=== PATIENT | female | born 1930 | race Caucasian/White ===

== ENCOUNTER 2018-06-11 14:12 | Inpatient (IN) | payer MEDICARE ==
[~2018-06-11] VITALS: Ht 170.2 cm; Wt 66.8 kg
[~2018-06-11 14:12] MED LIST: ASPIRIN325 PO; BIOTIN-D1 GM PO; BYSTOLIC10 MG PO; CALCIUM500 MG PO; CEPHALEXIN 250250 MG; COLACE 100 MG100 MG PO; COZAAR100 MG PO; CRANBERRY400 MG; DITROPAN; ENOXAPARIN40 MG/0.1 INJECTION; HYDROCHLOROTHIA25 M1 PO; HYDROCODON-ACE1 EAC7 PO; HYOSCYAMINE0.15 M1 PO; IBUPROFEN 600600 M1 PO; IBUPROFEN 800800 M1 PO; K-DUR10 ME1; KEFLEX250 M1 PO; LISINOPRIL20 MG PO; LOPRESSOR; METOPROLOL PO; NORVASC10 MG PO; OXYBUTYNIN 5 MG5 M1 PO; POTASSIUM CHLO10 ME1 PO; PREMARIN0.3 MG PO; SYNTHROID50 MCG PO; VITAMIN D3400 UNIT PO
[2018-06-11 14:20] VITALS: BP 186/64
[2018-06-11] MEDS ORDERED: ZITHROMAX250 MG PO (14:24)
[2018-06-11] MEDS ORDERED: PREDNISONE 10 M10 MG PO (14:24)
[2018-06-11] MEDS ORDERED: TRIAMCINOLONE A80 G2 TOP (14:27)
[2018-06-11 14:49] LABS: ABSOLUTE LYMPHOCYTES 1.8 thou/uL (0.8-5.3); ABSOLUTE MONOCYTES 0.6 thou/uL (0.0-1.2); ABSOLUTE NEUTROPHILS 8.4 thou/uL (1.6-8.1); BASOPHILS 0.4 %; HEMATOCRIT 40.3 % (37.0-47.0); HEMOGLOBIN 13.4 gm/dL (12.0-15.0); LYMPHOCYTES 16.9 %; MCH 30.1 pg (26.0-34.0); MCHC 33.4 g/dL (28.0-37.0); MCV 90.2 fL (80.0-100.0); MONOCYTES 5.2 %; MPV 9.8 fl. (7.2-11.1); NUCLEATED RBCS 0 /100WBC; PLATELET COUNT* 254 thou/uL (150-400); POLYS 77.5 %; RBC 4.46 mil/uL (4.20-5.00); RDW-CV 13.8 % (10.5-14.5); WBC 10.9 thou/uL (4.0-11.0)
[2018-06-11 15:07] LABS: ANION GAP 9 mmol/L (7-16); BUN 35 mg/dL (7-18); CALCIUM 9.1 mg/dL (8.5-10.1); CHLORIDE 103 mmol/L (98-107); CO2 28 mmol/L (21-32); CREATININE 1.5 mg/dL (0.6-1.3); GLUCOSE 106 mg/dL (70-99); POTASSIUM 4.6 mmol/L (3.5-5.1); SODIUM 140 mmol/L (136-145); TROPONIN-I LEVEL <0.06 ng/mL (<0.06)
[2018-06-11 15:09] LABS: ALBUMIN 3.5 g/dL (3.4-5.0); ALKALINE PHOSPHATASE 102 U/L (46-116); SGOT 19 U/L (15-37); SGPT 24 U/L (30-65); TOTAL BILIRUBIN 0.8 mg/dL (<0.1-1.0); TOTAL PROTEIN 7.5 g/dL (6.4-8.2)
[2018-06-11 16:47] LABS: URINE BILIRUBIN NEGATIVE (Negative); URINE BLOOD NEGATIVE (Negative); URINE CLARITY CLEAR; URINE COLOR YELLOW; URINE GLUCOSE-RANDOM NEGATIVE (Negative); URINE KETONES NEGATIVE (Negative); URINE LEUKOCYTES-REFLEX 1+ (Negative); URINE NITRITE-REFLEX NEGATIVE (Negative); URINE PROTEIN NEGATIVE (Negative); URINE UROBILINOGEN 0.2 E.U./dl (0.2-1.0)
[2018-06-11 16:57] VITALS: BP 186/64
[2018-06-11 17:03] LABS: BACTERIA-REFLEX 1-9 Few /HPF (None Seen); CASTS None Seen /LPF (None Seen); CRYSTALS None Seen /LPF (None Seen); MUCUS None Seen strn/LPF (None Seen); SQUAMOUS 0-3 Few /LPF (0-3); URINE RBC 0-2 Rare /HPF (0-2); URINE WBC-REFLEX 0-5 Rare /HPF (0-5)
[2018-06-11 17:17] VITALS: BP 176/81
--- NOTE | 2018-06-11 18:49 | NUR ---
REPORT RECIEVIED FOR DANETTE,RN IN ER OF EXPECTED ADMISSION AT 1635- DX: CHEST PAIN WITH HEMOPTYSIS- P[T ARRIVED TO ROOM 223 VIA CART AT 1647- PT SBA TO BED- SUMMER NANNY PLACED ORDERED, TRACING SR- PT A&O X4- CONTINENT OF BOWEL AND BLADDER- SBA WITH TRANSFERS FOR SAFETY- EXPIRATORY WHEEZING NOTED, RESP EVEN AND UN-LABORED- NON-PRODUCTIVE COUGH NOTED- VS 98.2 18 176/73 79 97%N ON RA- ABD SOFT/ROUND/NON-TENDER, BS X4 QUADS- LAST BM REPORTED 06/10/18- IV TO RIGHT AC NOTED TO INFILTRATED WITH NEW 20 GAUGE IV PLACED TO RIGHT FA THIS SHIFT- 1L BOLUS FINISHED ON FLOOR WITH MAINTANCE FLUIDS STARTED AT 100ML/HR- IV ABT COMPLETED IN FLOOR ORDERED WELL- LACTIC RESULTED AT 2.4 AT 1615 WITH RESULTS CALLED TO , ORDERS RECIEVIED TO REDRAW IN 6 HOURS WITH ORDERS NOTED INDICATED- PT DENIES ANY C/O PAIN/DISCOMFORT AT THIS TIME-SKIN C/D/I- CALL LIGHT AND PERSONAL BELONGINGS WITH IN REACH- HOURLY ROUNDS IN PLACE R/T SAFETY/NEEDS- ALL NEEDS MET AT THIS TIME-WCTM
[2018-06-11 19:30] VITALS: BP 150/55
[2018-06-11 23:51] VITALS: BP 152/57
[2018-06-12 04:00] VITALS: BP 115/58
--- NOTE | 2018-06-12 06:42 | NUR ---
VITALS WNL. SEE MAR. SEE CHARTING. FALL PRECAUTIONS IN PLACE. HOURLY ROUNDING FOR SAFETY.
[2018-06-12 07:55] VITALS: BP 180/65
--- NOTE | 2018-06-12 09:18 | NUR ---
ASSUMED CARE OF PT THIS AM AROUND 0715- PHONE BANKER IN PLACE ORDERED, TRACING SR- UPON ASSESSMENT PT NOTED TO BE RESTING IN BED, WATCHING TV- PT A&O X4- CONTINENT OF BOWEL AND BLADDER- SBA WITH TRANSFERS FOR SAFETY- EXPIRATORY WHEEZING NOTED, SOA NOTED ON EXERTION- VSS, O2 SAT 95% ON 2L VIA NC- ABD SOFT/ROUND/NON-TENDER, BS X4 QUADS- LAST BM REPORTED X2 DAYS AGO- GOOD PO INTAKE NOTED THIS AM WITH BREAKFAST- IV NOTED TO RIGHT FA INTACT, IVF INFUSSING PRESCIBED- TRACE EDEMA NOTED TO BLE- PULMONARY CONSULT INITIATED THIS AM, ECHO ORDERED- PT DENIES ANY C/O PAIN/DISCOMFORT AT THIS TIME- CALL LIGHT AND PERSONAL BELONINGS WITH IN REACH- HOURLY ROUNDS IN PLACE R/T SAFETY/NEEDS- ALL NEEDS MET AT THIS TIME-WCTM
[2018-06-12 12:18] VITALS: BP 152/56
[2018-06-12] MEDS ORDERED: VITAMIN B-1100 M1 PO (12:49)
--- NOTE | 2018-06-12 15:11 | EKG ---
[place] [address] ELECTROCARDIOGRAM REPORT Name: NEAL PEREZ Room: [address] ADM IN M.R.#: [id number] Admission: 06/11/18 Attend Phys: Guero Moyer MD Discharge: Date of : 31 Report #: [id number] THIS REPORT FOR: //name// [facility] ED Test Date: 2018-06-11 Test Time: 14:46:28 Pat Name: NEAL PEREZ Department: Room: [facility] Gender: F Manufacturing Teacher: Mike TAVERAS : 1930 Requested By: Merle Barnes Order Number: [id number] MD: Aaron Garcia Measurements Intervals [place] Rate: 56 P: 45 PA: 191 QRS: 1 QRSD: 95 T: 51 QT: 439 QTc: 424 Interpretive Statements Sinus rhythm Left ventricular hypertrophy Borderline T abnormalities, anterior leads Compared to ECG 03/22/2012 18:21:28 Left ventricular hypertrophy now present T-wave abnormality now present Electronically Signed On 06-12-2018 15:10:51 CDT by Aaron Garcia [email or web address] <ELECTRONICALLY SIGNED> By: Aaron Garcia MD, FAC 06/12/18 1510 1446 1446 Aaron Garcia MD, [facility] /EPI
--- NOTE | 2018-06-12 16:09 | NUR ---
PT CURRENTLY RESTING IN BED, WATCHING TV- MANAGER OF [employer]LOBAL CONTINUED THIS SHIFT, TRACING SR- IV TO RIGHT FA INTACT AND SL, IVF NOTED TO BE D/C'D THIS SHIFT- PT NOTED TO BE UP TO BED SIDE CHAIR THIS SHIFT WITH MEALS TOLERATING WELL- PULMONARY HERE TO ASSESS THIS SHIFT WITH NEW ORDERS NOTED FOR SOLU-MED Q 8 HOURS, FLORASTOR 250MG BID, DUONEB Q 4, ROCEPHIN IV DAILY WITH 1ST DOSE GIVEN PRESCRIBED, AND US OF BLE WITH RESULTS NOTED TO NEGATIVE THIS SHIFT- IBUPROFEN 800MG X1 THIS SHIFT FOR C/O HEADACHE, REPORTED TO BE EFFECTIVE PER PT- PT MAKES NEEDS KNOWN- ALL NEEDS MET AT THIS TIME-WCTM
[2018-06-12 19:20] VITALS: BP 169/63
[2018-06-13] VITALS: BP 161/54
[2018-06-13 04:00] VITALS: BP 176/65
--- NOTE | 2018-06-13 06:40 | NUR ---
VITALS WNL. SEE MAR. SEE CHARTING. FALL PRECAUTIONS IN PLACE. HOURLY ROUNDING FOR SAFETY.
[2018-06-13 08:00] VITALS: BP 159/66
[2018-06-13 11:53] VITALS: BP 162/62
--- NOTE | 2018-06-13 13:39 | 2DMMODE ---
[place] [address] 2 D/M-MODE ECHOCARDIOGRAM Name: NEAL PEREZ Room: [address] IN [facility]#: [id number] Admission: 06/11/18 Attend Phys: Guero Moyer, Discharge: Date of : 32 Date of Service: 06/13/18 1339 Report #: [id number] THIS REPORT FOR: //name// APPROVED REPORT Study performed: 06/13/2018 10:17:38 EXAM: Comprehensive 2D, Doppler, and color-flow Echocardiogram Patient Location: In-Patient Room #: [facility] Status: routine BSA: 1.75 HR: 86 bpm BP: 159/66 mmHg Rhythm: NSR Other Information Study Quality: Good Indications Chest Pain 2D Dimensions IVSd: 11.84 (7-11mm) LVOT Diam: 21.22 (18-24mm) LVDd: 46.86 mm PWd: 11.03 (7-11mm) Ascending Ao: 32.82 (22-36mm) LVDs: 24.29 (25-40mm) Aortic Root: 26.35 mm Volumes Left Atrial Volume (Systole) LA ESV Index: 42.10 mL/m2 Aortic Valve AoV Peak Angel.: 2.68 m/s AO Peak Gr.: 28.72 mmHg LVOT Max P.42 mmHg AO Mean Gr.: 17.11 mmHg LVOT Mean P.53 mmHg LVOT Max V: 1.36 m/s AO V2 VTI: 53.65 cm LVOT Mean V: 0.85 m/s DARIN (VTI): 1.94 cm2 LVOT V1 VTI: 29.42 cm Mitral Valve E/A Ratio: 0.72 MV Decel. Time: 266.08 ms MV E Max Angel.: 0.77 m/[place] [address] 2 D/M-MODE ECHOCARDIOGRAM Name: NEAL PEREZ Room: [address] IN [facility].#: [id number] Admission: 06/11/18 Attend Phys: Guero Moyer, Discharge: Date of : 31 Date of Service: 06/13/18 1339 Report #: [id number] MV PHT: 77.16 ms MVA (PHT): 2.85 cm2 TDI E/Lateral E': 8.56 E/Medial E': 9.63 Medial E' Angel.: 0.08 m/s Lateral E' Angel.: 0.09 m/s Pulmonary Valve PV Peak Angel.: 1.34 m/s PV Peak Gr.: 7.14 mmHg Left Ventricle The left ventricle is normal size. There is normal LV segmental wall motion. There is normal left ventricular wall thickness. Left ventricular systolic function is normal. The left ventricular ejection fraction is within the normal range. LVEF is 60-65%. Grade I - abnormal relaxation pattern. Right Ventricle The right ventricle is normal size. The right ventricular systolic function is normal. Atria Left atrium is mildly dilated. The right atrium size is normal. Aortic Valve Mild aortic valve sclerosis. No aortic regurgitation is present. Mild aortic stenosis. Mitral Valve The mitral valve is normal in structure. Mild mitral regurgitation. No evidence of mitral valve stenosis. Tricuspid Valve The tricuspid valve is normal in structure. Unable to assess PA pressure. Trace tricuspid regurgitation. Pulmonic Valve The pulmonary valve is normal in structure. Trace pulmonic regurgitation. Great Vessels The aortic root is normal in size. IVC is normal in size and collapses >50% [place] [address] 2 D/M-MODE ECHOCARDIOGRAM Name: CHRISNEAL M Room: [address] IN [facility]#: [id number] Admission: 06/11/18 Attend Phys: Guero Moyer, Discharge: Date of : 31 Date of Service: 06/13/18 1339 Report #: [id number] Pericardium There is no pericardial effusion. <Conclusion> The left ventricle is normal size. There is normal left ventricular wall thickness. Left ventricular systolic function is normal. The left ventricular ejection fraction is within the normal range. LVEF is 60-65%. Grade I - abnormal relaxation pattern. The right ventricle is normal size. Left atrium is mildly dilated. Mild aortic valve sclerosis. No aortic regurgitation is present. Mild aortic stenosis. The mitral valve is normal in structure. Mild mitral regurgitation. The tricuspid valve is normal in structure. IVC is normal in size and collapses >50% with inspiration. There is no pericardial effusion. There is normal LV segmental wall motion. <ELECTRONICALLY SIGNED> By: Ray Boyd MD, FACC 06/13/18 1339 1339 1339 Ray Boyd MD, FACC /INF
[2018-06-13] MEDS ORDERED: CEFDINIR300 MG PO (13:50)
[2018-06-13] MEDS ORDERED: PROTONIX40 M1 PO (13:51)
[2018-06-13 14:04] VITALS: BP 162/62
--- NOTE | 2018-06-13 14:13 | CON ---
[address] [address] CONSULTATION Name: NEAL PEREZ Room: [address] IN M.R.#: [id number] Admission: 06/11/18 Attend Phys: Guero Moyer MD Discharge: Date of : 31 Report #: [id number] THIS REPORT FOR: //name// CC: Guero Wellington DATE OF SERVICE: 06/12/2018 REQUESTING PHYSICIAN: Dr. Moyer. INDICATION FOR CONSULTATION: Cough. HISTORY OF PRESENT ILLNESS: This is an 87-year-old female. She does not have any history of longstanding cardiac or respiratory disease longstanding. This is with the exception that there is a reported history of remote acute pulmonary embolism. The patient is not able to recall when this occurred. The patient stated that she has been sick for the last 3-4 weeks. She says that her also has been sick and has had similar complaints. She reports that she has had a cough. She has been bringing up yellow as well as white sputum. She did receive an antibiotic as well as prednisone, which she may have taken for 2 or 3 days prior to this admission, unclear as to whether the patient also received another antibiotic previous to this. The patient also did bring up small amounts of blood shortly prior to admission. She says that she has been short of breath. She did have some vague chest discomfort with respiration and coughing as well, which has now subsided. She does not have upper respiratory complaints. There is no swelling of lower extremities. There is no calf pain. The patient, however, does have significant varicose veins. She is not complaining of heartburn. She answered to the negative for 12 questions for review of systems except as mentioned above. PAST MEDICAL HISTORY: Per records, she had an acute pulmonary embolism at some point, the patient is unable to recall; hypertension, partial hysterectomy, bladder suspension, gallbladder surgery, hypothyroidism, Ospina's palsy, broken pelvis/hip. CURRENT MEDICATIONS: List in [employer] reviewed. HOME MEDICATIONS: List also in [employer] reviewed. SOCIAL HISTORY: Lifetime nonsmoker. No known history of heavy alcohol use or illegal drug use. ALLERGIES: THERE IS MENTION OF AMOXICILLIN AN ALLERGY; HOWEVER, THE PATIENT SAYS THAT SHE MAY HAVE TAKEN PENICILLIN RECENTLY; THEREFORE, IT IS QUESTIONABLE IF SHE ACTUALLY IS ALLERGIC TO PENICILLIN. Regardless, [place] [address] CONSULTATION Name: NEAL PEREZ Room: [address]#: [id number] Admission: 06/11/18 Attend Phys: Guero Moyer MD Discharge: Date of : 31 Report #: [id number] cephalosporins without any problems. SULFONAMIDE ANTIBIOTICS, HYDROCODONE AND CARISOPRODOL ARE ALSO MENTIONED ALLERGIES. PHYSICAL EXAMINATION: GENERAL: She is alert, awake and oriented, does not appear to be in any distress. VITAL SIGNS: She is on room air. She is saturating 92%. Has a pulse of 64 and a blood pressure of 152/56. She is afebrile with a temperature of 36.9. HEENT: Head is normocephalic and atraumatic. Pupils are equal and reactive. There is no throat erythema. NECK: Does not show raised JVP. CHEST: Breath sounds bilaterally equal, decreased, expirations are prolonged. No added sounds. HEART: Regular. There is no murmur. ABDOMEN: Soft and nontender. EXTREMITIES: Lower extremities show no edema and no calf tenderness; however, there are extensive and large varicose veins noted bilaterally. SKIN: Dry and intact. NEUROLOGICAL: Moves all extremities bilaterally equally and spontaneously with no focal deficit identified. IMAGING STUDIES: The patient's CTA chest shows a radiopaque density at the left lung base, has previous scarring on the previous CT as well, perhaps this is slightly more prominent on the new CT. There is no pulmonary embolism identified. There is no increase in pulmonary vascular congestion. LABORATORY DATA: The patient's lab work is in [employer] and this is reviewed. ASSESSMENT AND PLAN: 1. Cough/acute respiratory insufficiency. The patient appears to have had a recent viral respiratory tract infection, which appears to have already subsided. Note that her also had similar symptoms; however, this viral respiratory tract infection appears to have led to bronchospasm. It appears likely to me that this bronchospasm is the etiology of the patient's symptoms. The patient had some hemoptysis. This appears to be related to excessive coughing. There may in addition be a component of silent gastroesophageal reflux as well. 2. Bronchospasm. I will go ahead and start her on Solu-Medrol. We will also go ahead and start her on nebulized bronchodilators. 3. Hemoptysis/pulmonary infiltrates/left lower lobe scarring. There is a radiopaque density at the left lung base. This is also seen on her previous CT performed 10 years ago that is somewhat more prominent. There may be a small superimposed infiltrate. Therefore, at this time, I would continue with Zithromax and I went ahead and ordered more ceftriaxone as well. She has received a dose of ceftriaxone in the Emergency Room already. Most of the findings of the left lower lobe, however, appear to be old. A followup CT in [place] [id number] CONSULTATION Name: NEAL PEREZ Room: [address] IN ..#: [id number] Admission: 06/11/18 Attend Phys: Guero Moyer MD Discharge: Date of : 31 Report #: [id number] 3-6 months can be considered. The patient's hemoptysis has now subsided. There is no evidence of pulmonary emboli on the CT chest. 4. Suspected silent gastroesophageal reflux disease. In the short run, I will go ahead and give her a proton pump inhibitor while she is here. 5. Varicose veins. We will also do venous Dopplers. Note that there is a questionable history of pulmonary embolism at some point in the past. 6. Fluids and electrolytes. She did appear to be dehydrated on initial presentation with a creatinine elevated to 1.5, this has returned to 1.2 now. She has been well hydrated. In order to avoid development of fluid overload, I will go ahead and discontinue IV fluids at this time. 7. Deep vein thrombosis prophylaxis. She is on Lovenox. Thanks for this consultation. <ELECTRONICALLY SIGNED> By: Chris Prince MD 06/13/18 1413 1237 0727eYyo Chen MD /nt
== END 2018-06-13 15:00 | disposition home or self-care (01) | DRG 177 ==
LOC: M.ERS 14:12 → M.TBA-ER 15:46 → M.2W 15:46
PROVIDERS: Physician Assistant
DX: J15.6 Pneumonia due to other Gram-negative bacteria (principal); J96.01 Acute respiratory failure with hypoxia; N17.9 Acute kidney failure, unspecified; I12.9 Hypertensive chronic kidney disease with stage 1 through stage 4 chronic kidney disease, or unspecified chronic kidney disease; N18.3 Chronic kidney disease, stage 3 (moderate); J98.01 Acute bronchospasm; I83.90 Asymptomatic varicose veins of unspecified lower extremity; E03.9 Hypothyroidism, unspecified; Z88.1 Allergy status to other antibiotic agents; Z88.2 Allergy status to sulfonamides; Z88.8 Allergy status to other drugs, medicaments and biological substances; Z79.82 Long term (current) use of aspirin; Z79.899 Other long term (current) drug therapy; Z90.710 Acquired absence of both cervix and uterus; Z90.49 Acquired absence of other specified parts of digestive tract; Z86.711 Personal history of pulmonary embolism

== ENCOUNTER 2018-06-29 10:33 | Inpatient (IN) | payer MEDICARE ==
[~2018-06-29] VITALS: Ht 167.6 cm; Wt 67.1 kg
--- NOTE | ~2018-06-29 | CON ---
[address] [address] CONSULTATION Name: NEAL PEREZ Room: [address] IN .R.#: [id number] Admission: 06/29/18 Attend Phys: Maite Mittal MD Discharge: Date of : 31 Report #: [id number] THIS REPORT FOR: //name// CC: Maite Wellington MD DICTATED BY: Yeny Cantu [facility] DATE OF SERVICE: 06/30/2018 Please note at the time of this dictation, the patient was seen and physically examined by myself. HISTORY OF PRESENT ILLNESS: This 88-year-old female who presented to the Emergency Room with complaint of some rectal bleeding. She states that it started yesterday around 10:30 in the morning associated with some abdominal pain located in her lower abdomen. She states that it would radiate into her flank area. She had about 5 bowel movements during that time and very crampy and worsening in intensity with her bowel movement. She also noted that they were brown and very diarrhea like and then later, she noticed the bright red blood. She does have a history of diverticulitis in the past and these symptoms are similar she states that she has had before. The patient had a colonoscopy greater than 15 years ago and she does not recall what it showed. She denies any upper GI symptoms, no nausea, vomiting, decreased appetite or weight loss. She does have a history of some constipation, which she may go every 2-3 days. She states that her bowels if she has to take anything she may try, but usually stools are very hard and dry when she does go. ALLERGIES: INCLUDE AMOXICILLIN, CARISOPRODOL, HYDROCODONE AND SULFA. MEDICATIONS: From home, calcium, aspirin, Norvasc, Biotene, Synthroid, Cozaar, metoprolol, oxybutynin, potassium, pantoprazole, and ibuprofen p.r.n., but rarely takes that. PAST MEDICAL HISTORY: Hypertension, hypothyroid, history of PE in the past, Ospina's palsy and diverticulitis. PAST SURGICAL HISTORY: Cholecystectomy, bladder suspension, partial hysterectomy. FAMILY HISTORY: Negative for any GI or female cancers. SOCIAL HISTORY: and denies any alcohol, tobacco or illegal drug use. REVIEW OF SYSTEMS: Twelve-point review [place] [address] CONSULTATION Name: NEAL PEREZ Room: [address]#: [id number] Admission: 06/29/18 Attend Phys: Maite Mittal MD Discharge: Date of : 31 Report #: [id number] except what is mentioned in the HPI. PHYSICAL EXAMINATION: VITAL SIGNS: Temperature 36.6, pulse 55, respirations 16, blood pressure 182/63. HEART: Regular rate and rhythm. LUNGS: Clear. ABDOMEN: Soft, positive bowel sounds in all 4 quadrants with some slight left-sided quadrant tenderness. LABORATORY DATA: Hemoglobin 11.3, white count is 7.4, platelets 137. GFR is 47. PT 9.7 [address] is 0.9. CT showed left-sided colitis with faint contrast material accumulation within the lumen and diffusely thick walled descending colon. There was no actively extravasating mesenteric artery that was able to be identified. IMPRESSION: 1. Rectal bleeding. 2. Abdominal pain. 3. History of diverticulitis. 4. Constipation. 5. Anemia. 6. Thrombocytopenia. 7. Chronic kidney disease. PLAN: 1. Colonoscopy tomorrow with Dr. Mcneil. 2. Continue her Cipro and Flagyl, will need to continue that upon discharge. 3. The patient will need to have a better bowel regimen prior to going home, so that she is going on a more daily basis. 4. Further recommendations to be made once the procedure has been performed. Thank you for allowing us to participate in this patient's care. Please do not hesitate to call with any questions in regard to this consult. ADDENDUM I have personally seen and examined the patient and reviewed labs and imaging. The patient with history of colonoscopy over 15 years ago, who presents with severe abdominal pain followed by frequent stooling and blood in the stool. Her hemoglobin has dropped from 13 to 11. The patient also had a CT of abdomen and pelvis, which showed some thickening of the left side of the colon. She has prophylactically started on antibiotic and IV fluids. She is feeling somewhat better. We have suspicion [place] [address] CONSULTATION Name: NEAL PEREZ Room: [address] IN [facility]#: [id number] Admission: 06/29/18 Attend Phys: Maite Mittal MD Discharge: Date of : 31 Report #: [id number] ischemia and we will perform a colonoscopy tomorrow. This was communicated with the patient and is agreeable with plan. By: 1242 [id number] Rodriguez MD /khushi
[~2018-06-29 10:33] MED LIST changes: +CEFDINIR300 MG PO; +PREDNISONE 10 M10 MG PO; +PROTONIX40 M1 PO; +TRIAMCINOLONE A80 G2 TOP; +VITAMIN B-1100 M1 PO; +ZITHROMAX250 MG PO
[2018-06-29 10:46] VITALS: BP 134/57
[2018-06-29 11:26] LABS: ABSOLUTE BASOPHILS 0.1 thou/uL (0.0-0.2); ABSOLUTE EOSINOPHILS 0.1 thou/uL (0.0-0.7); ABSOLUTE LYMPHOCYTES 1.9 thou/uL (0.8-5.3); ABSOLUTE MONOCYTES 0.7 thou/uL (0.0-1.2); ABSOLUTE NEUTROPHILS 7.1 thou/uL (1.6-8.1); BASOPHILS 0.5 %; EOSINOPHILS 1.1 %; HEMATOCRIT 38.4 % (37.0-47.0); LYMPHOCYTES 18.8 %; MCH 30.8 pg (26.0-34.0); MCHC 33.9 g/dL (28.0-37.0); MCV 90.9 fL (80.0-100.0); MONOCYTES 7.2 %; MPV 9.3 fl. (7.2-11.1); NUCLEATED RBCS 0 /100WBC; PLATELET COUNT* 142 thou/uL (150-400); POLYS 72.4 %; RBC 4.22 mil/uL (4.20-5.00); RDW-CV 14.4 % (10.5-14.5); WBC 9.9 thou/uL (4.0-11.0)
[2018-06-29 11:31] LABS: URINE BILIRUBIN NEGATIVE (Negative); URINE BLOOD NEGATIVE (Negative); URINE CLARITY CLEAR; URINE COLOR YELLOW; URINE GLUCOSE-RANDOM NEGATIVE (Negative); URINE KETONES NEGATIVE (Negative); URINE LEUKOCYTES-REFLEX TRACE (Negative); URINE NITRITE-REFLEX NEGATIVE (Negative); URINE PROTEIN NEGATIVE (Negative); URINE UROBILINOGEN 0.2 E.U./dl (0.2-1.0)
[2018-06-29 12:00] LABS: ALBUMIN 3.1 g/dL (3.4-5.0); ALKALINE PHOSPHATASE 90 U/L (46-116); ANION GAP 6 mmol/L (7-16); BUN 30 mg/dL (7-18); CHLORIDE 106 mmol/L (98-107); CO2 27 mmol/L (21-32); CREATININE 1.4 mg/dL (0.6-1.3); GLUCOSE 91 mg/dL (70-99); LIPASE 88 U/L (73-393); POTASSIUM 4.5 mmol/L (3.5-5.1); SGOT 23 U/L (15-37); SGPT 40 U/L (30-65); SODIUM 139 mmol/L (136-145); TOTAL BILIRUBIN 0.8 mg/dL (<0.1-1.0); TOTAL PROTEIN 6.3 g/dL (6.4-8.2); TROPONIN-I LEVEL <0.06 ng/mL (<0.06)
[2018-06-29 12:06] LABS: SQUAMOUS 0-3 Few /LPF (0-3)
[2018-06-29 12:08] LABS: BACTERIA-REFLEX 1-9 Few /HPF (None Seen); CASTS None Seen /LPF (None Seen); CRYSTALS None Seen /LPF (None Seen); MUCUS None Seen strn/LPF (None Seen); URINE RBC 0-2 Rare /HPF (0-2); URINE WBC-REFLEX 0-5 Rare /HPF (0-5)
[2018-06-29 12:10] LABS: TRANSITIONAL EPITHEL CELL 0-3 Few /LPF (None Seen)
[2018-06-29 13:27] LABS: APTT 24.7 Seconds (25.0-31.3); INR 0.9; PROTIME 9.7 Seconds (9.20-11.50)
--- NOTE | 2018-06-29 14:42 | EKG ---
[place] [address] ELECTROCARDIOGRAM REPORT Name: NEAL PEREZ Room: [place] [address] ADM IN .R.#: [id number] Admission: 06/29/18 Attend Phys: Maite Mittal MD Discharge: Date of : 31 Report #: [id number] THIS REPORT FOR: //name// [facility] ED Test Date: 2018-06-29 Test Time: 11:11:36 Pat Name: NEAL PEREZ Department: Room: [facility] Gender: F Network Security Consultant: : 1930 Requested By: Robe Ceballos Order Number: [id number] MD: Ray Boyd Measurements Intervals [place] Rate: 53 P: 45 ID: [id number] QRS: 4 QRSD: 89 T: 59 QT: 405 QTc: 381 Interpretive Statements Sinus rhythm Left ventricular hypertrophy Compared to ECG 06/11/2018 14:46:28 T-wave abnormality no longer present Electronically Signed On 06-29-2018 14:42:02 CDT by Ray Boyd [email or web address] <ELECTRONICALLY SIGNED> By: Ray Boyd MD, [facility] 06/29/18 1442 1111 1111 Ray Boyd MD, FACC /EPI
[2018-06-29 17:46] LABS: HEMOGLOBIN 11.5 gm/dL (12.0-15.0); MCH 30.7 pg (26.0-34.0); MCHC 33.7 g/dL (28.0-37.0); MCV 91.2 fL (80.0-100.0); MPV 10.1 fl. (7.2-11.1); RBC 3.73 mil/uL (4.20-5.00); RDW-CV 14.1 % (10.5-14.5); WBC 8.3 thou/uL (4.0-11.0)
[2018-06-29 18:22] VITALS: BP 162/88
[2018-06-29 19:04] VITALS: BP 187/66
[2018-06-29 20:00] VITALS: BP 164/55
[2018-06-29 20:15] VITALS: BP 149/50
[2018-06-29 23:15] VITALS: BP 149/50
[2018-06-30 04:09] VITALS: BP 147/54
[2018-06-30 05:00] LABS: HEMATOCRIT 33.8 % (37.0-47.0); HEMOGLOBIN 11.3 gm/dL (12.0-15.0); MCH 30.6 pg (26.0-34.0); MCHC 33.3 g/dL (28.0-37.0); MPV 9.8 fl. (7.2-11.1); RBC 3.67 mil/uL (4.20-5.00); RDW-CV 14.4 % (10.5-14.5); WBC 7.4 thou/uL (4.0-11.0)
[2018-06-30 05:10] LABS: CALCIUM 8.5 mg/dL (8.5-10.1); CREATININE 1.1 mg/dL (0.6-1.3); MAGNESIUM 1.5 mg/dL (1.8-2.4); POTASSIUM 4.4 mmol/L (3.5-5.1)
--- NOTE | 2018-06-30 06:12 | NUR ---
ASSUMED PT CARE @ 1930. PT DENIES PAIN OR BM THIS SHIFT. AMBULATES W STEADY GAIT.A+OX4. TRACING SR ON MONITOR. MELATONIN GIVEN @ HS. EFFECTIVE FOR A FEW HRS THEN PT REQUESTED PRN BENADRYL. EFFECTIVE. CALL LIGHT IN REACH. HOURLY ROUNDING FOR SAFETY.
[2018-06-30 08:30] VITALS: BP 182/63
--- NOTE | 2018-06-30 09:14 | NUR ---
Pt is A&O. Resides at home with her . Active and independent. No DME. Hx of [facility] post hip surgery. No hx of SNF. Goal is home at dc, no needs anticipated. Following.
[2018-06-30 14:08] VITALS: BP 136/56
[2018-06-30] MEDS ORDERED: PERCOCET PO (14:08)
[2018-06-30] MEDS ORDERED: PROTONIX40 M1 PO (14:08)
[2018-06-30 15:43] VITALS: BP 166/51
--- NOTE | 2018-06-30 16:24 | NUR ---
ASSUMED CARE OF PATIENT @ ABOUT 1500 BY WHEEL CHAIR. PATIENT ORIENTED TO ROOM. ALERT AND ORIENTED X 4. IVF INFUSING. PT UP AD ODALIS. DENIES PAIN AND NAUSEA AT THIS TIME. WILL CONTINUE TO MONITOR.
[2018-06-30 19:45] VITALS: BP 179/53
[2018-07-01 03:19] VITALS: BP 179/53
--- NOTE | 2018-07-01 05:08 | NUR ---
PT REMAINED A&O X 4. PO MEDS, IV ANTIBIOTIC GIVEN ORDERED. NO PAIN, NAUSEA OR VOMITIMG. BOWEL PREP DONE FOR COLONOSCOPY. RETURN WATERY TRANSPARENT. ELECTROLYTE REPLACEMENT FOR OVER NIGHT, REDRAWN PENDING. WILL CONTINUE TO MONITOR.
[2018-07-01 07:43] VITALS: BP 157/56
--- NOTE | 2018-07-01 07:49 | NUR ---
PT A&O X4. VITALS, SpO2 STABLE RA. MEDS GIVEN ORDERED. PAIN WELL MANAGED WITH TYLENOL. NO NAUSEA OR VOMITING. PT WAS TAUGHT BY DAYSHIFT NURSE HOW TO EMPTY THE DRAINAGE BAG FOR HOME CARE. PT DEMONSTRATED GOOD TECHNIQUE THIS MORNING INDEPENDENTLY. 95 ML OF GREENISH DRAINAGE EMPTIED. WILL CONTINUE TO MONITOR.
[2018-07-01] MEDS ORDERED: ASPIRIN325 PO (08:12)
[2018-07-01] MEDS ORDERED: ACETAMINOPHEN325 M1 PO (08:12)
[2018-07-01] MEDS ORDERED: FLAGYL500 M1 PO (08:12)
[2018-07-01] MEDS ORDERED: CIPRO500 MG PO (08:12)
[2018-07-01 08:36] LABS: HEMOGLOBIN 11.3 gm/dL (12.0-15.0); MCH 30.1 pg (26.0-34.0); MCHC 33.3 g/dL (28.0-37.0); MCV 90.5 fL (80.0-100.0); MPV 9.8 fl. (7.2-11.1); RBC 3.76 mil/uL (4.20-5.00); RDW-CV 14.1 % (10.5-14.5); WBC 5.4 thou/uL (4.0-11.0)
[2018-07-01 08:41] LABS: CALCIUM 7.7 mg/dL (8.5-10.1); POTASSIUM 3.7 mmol/L (3.5-5.1)
--- NOTE | 2018-07-01 09:10 | NUR ---
REC'D REPORT FROM NOC RN, ASSUMED CARE OF PATIENT APPROX 0730. A&OX4, ABLE TO COMMUNICATE NEEDS TO STAFF. ASSESSMENT COMPLETE AND VS OBTAINED. MED/SURG STATUS. O2 SATS 94% WITH COUGH AND DEEP BREATH. NPO FOR COLONOSCOPY. NO C/O PAIN OR NAUSEA. CALL LIGHT WITHIN REACH. HOURLY ROUNDING FOR SAFETY AND PT NEEDS.
--- NOTE | 2018-07-01 13:00 | NUR ---
PATIENT RETURNED TO UNIT APPROX 1235, REPORT REC'D FROM [employer] D[employer]LLING MACHINE OPERATOR. PATIENT IN NO DISTRESS, NO C/O PAIN, NAUSEA OR SOA. ASSESSMENT COMPLETED, VS WNL. DIET ORDER IN PLACE. CALL LIGHT WITHIN REACH.
[2018-07-01 16:00] VITALS: BP 107/40
[2018-07-01 19:30] VITALS: BP 107/40
--- NOTE | 2018-07-01 20:38 | NUR ---
PATIENT DISCHARGED AT 2009 BY WHEELCHAIR TO CAR WITH SPOUSE IN STABLE CONDITION. DISCHARGE INSTRUCTIONS, MONOGRAPHS AND ALL BELONGINGS WITH PATIENT. SPOUSE HAS ALREADY RECEIVED NEW ABX RX AND HAD THEM FILLED.
--- NOTE | 2018-07-04 14:06 | PATH ---
[facility] [address] [place] [address] PATHOLOGY RPT PROCEDURE Name: BHAKTI OCASIO Room: [address] IN M.R.#: [id number] Admission: 06/29/18 Date of : 31 Discharge: 07/01/18 Report #: [id number] Path Case #: [id number] LCA Accession Number: [id number] . 01 Material submitted: . PART A: colon - ASCENDING COLON POLYP. Modifiers: ascending PART B: colon - SIGMOID COLON BIOPSY. Modifiers: sigmoid . 01 Clinical history: . Rule out ischemic colitis . 02 Diagnosis: A. Ascending colon polyp: - Hyperplastic polyp. . B. 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 See comment. (THERESA:benitez 07/04/2018) QTP/07/04/2018 . 02 Comment: The sigmoid colon biopsies (B) show benign colonic mucosa with active inflammation evidenced by neutrophils in the lamina propria in association with mucosal necrosis and atrophy with preservation of the deeper aspects of the crypts as well as condensation of the lamina propria in some areas suggesting fibrosis, typical of ischemic colitis. There is no significant basal lymphoplasmacytosis or crypt distortion to elevate a concern for inflammatory bowel disease. (THERESA:pit 07/04/2018) . 02 Electronically signed: . César Ospina MD, Pathologist NPI- [id number] . 01 Gross description: . A. Received in formalin labeled "Bhakti Ocasio, ascending colon polyp," are 2 segments of gutierrez soft tissue measuring 0.8 x 0.3 x 0.3 cm in aggregate dimensions and ranging from 0.3 to 0.5 cm in maximum dimension. The specimen is submitted entirely in cassette A1. . B. Received in formalin labeled "Bhakti Ocasio, sigmoid colon BX," are 5 segments of gutierrez soft tissue measuring 1.0 x 0.6 x 0.2 cm in aggregate dimensions and ranging from 0.2 to 0.3 cm in maximum dimension. The specimen is submitted entirely in cassette B1. (TSD; 07/01/2018) TOB/TOB . [address] [place] [address] PATHOLOGY RPT PROCEDURE Name: BHAKTI OCASIO Room: [address] IN M.R.#: [id number] Admission: 06/29/18 Date of : 31 Discharge: 07/01/18 Report #: [id number] Path Case #: [id number] Pathologist provided ICD-10: K63.5, K52.9 . 02 CPT . 247956, 176254 Specimen Comment: A courtesy copy of this report has been sent to Specimen Comment: [phone], , . Specimen Comment: Report sent to ,DR ALONZO / DR XIE Specimen Comment: A duplicate report has been generated due to demographic updates. Performed at: 01 [facility] [id number] [address], [place] [id number] MD Kenji Stone MD Phone: [phone] Performed at: 02 [facility] [address], [place], [place] [address] MD César Ospina MD Phone: [phone]
== END 2018-07-01 20:10 | disposition home or self-care (01) | DRG 394 ==
LOC: M.ERS 10:33 → M.TBA-ER 14:15 → M.ORTHSURG 14:15 → M.2W 14:15 → M.ORTHSURG 06-30 15:09
PROVIDERS: Family Medicine; ADMIT Internal Medicine
PROC: 0DBN8ZX Excision of Sigmoid Colon, Via Natural or Artificial Opening Endoscopic, Diagnostic (ICD-10-PCS; principal; 2018-07-01)
PROC: 0DBK8ZZ Excision of Ascending Colon, Via Natural or Artificial Opening Endoscopic (ICD-10-PCS; principal; 2018-07-01)
DX: K55.9 Vascular disorder of intestine, unspecified (principal); E44.1 Mild protein-calorie malnutrition; K57.30 Diverticulosis of large intestine without perforation or abscess without bleeding; N18.3 Chronic kidney disease, stage 3 (moderate); E03.9 Hypothyroidism, unspecified; K59.00 Constipation, unspecified; D69.6 Thrombocytopenia, unspecified; D64.9 Anemia, unspecified; I12.9 Hypertensive chronic kidney disease with stage 1 through stage 4 chronic kidney disease, or unspecified chronic kidney disease; K64.4 Residual hemorrhoidal skin tags; Z90.711 Acquired absence of uterus with remaining cervical stump; Z90.49 Acquired absence of other specified parts of digestive tract; Z86.711 Personal history of pulmonary embolism; Z88.6 Allergy status to analgesic agent; Z88.1 Allergy status to other antibiotic agents; Z88.2 Allergy status to sulfonamides; Z88.8 Allergy status to other drugs, medicaments and biological substances; Z79.1 Long term (current) use of non-steroidal anti-inflammatories (NSAID); Z79.899 Other long term (current) drug therapy; Z68.23 Body mass index [BMI] 23.0-23.9, adult

== ENCOUNTER 2019-12-20 13:51 | Inpatient (IN) | payer MEDICARE ==
[~2019-12-20] VITALS: Ht 170.2 cm; Wt 68.0 kg
--- NOTE | ~2019-12-20 | OP ---
[address] [address] OPERATIVE REPORT Name: CHRISNEAL Jeter Room: [address] IN .R.#: [id number] Admission: 12/20/19 Attend Phys: Mele Traore Discharge: Date of : 31 Report #: [id number] THIS REPORT FOR: //name// cc: Annie Wellington MD, Lin W. MD ~ CC: Joseph Saldana DICTATED BY: Howard Muhammad DO DATE OF SERVICE: 12/21/2019 PREOPERATIVE DIAGNOSIS: Displaced left femoral neck fracture. POSTOPERATIVE DIAGNOSIS: Displaced left femoral neck fracture. PROCEDURE: Left hip hemiarthroplasty. SURGEON: Nazario Parker DO. ASSISTANTS: 1. Howard Muhammad DO. 2. Rufus Calvert DO. ANESTHESIA: General. FLUIDS: Crystalloid per Anesthesia. ESTIMATED BLOOD LOSS: 100 mL. DRAINS: None. SPECIMENS: None. COMPLICATIONS: None. CONDITION: Stable to PACU. DISPOSITION: Recovery in PACU and discharge back to the floor. ANTIBIOTICS: 2 grams Ancef IV preop. IMPLANTS: Microport hemiarthroplasty with 49/28 bipolar head with a 0 neck. Size 5 Gladiator stem with standard offset. [address] [address] OPERATIVE REPORT Name: NEAL PEREZ Room: [address] IN [facility]#: [id number] Admission: 12/20/19 Attend Phys: Mele Traore Discharge: Date of : 31 Report #: [id number] INDICATIONS FOR PROCEDURE: The patient is a very pleasant 89-year-old female. She had a ground level fall yesterday and fell directly onto her left hip. She had immediate hip pain and was taken to the Emergency Department. X-rays identified a displaced left femoral neck fracture. We discussed surgical treatment of this. The risks, benefits, alternatives and possible complications were discussed at length and she was agreeable to proceed. We did discuss that this would be similar to her right hip fracture treatment that she had years ago. DESCRIPTION OF PROCEDURE: The patient was met in the preoperative area. Consent was obtained both verbally and written. The correct site was marked. She was transferred to the operative suite. She was given the benefit of general anesthesia. She was then transferred to the OR table and placed in the left lateral decubitus position. She was secured using the pegboard. All bony prominences were well padded. The left lower extremity was then prepped and draped in normal sterile fashion. A timeout was performed to identify the correct patient, procedure and operative site and antibiotic administration. All in the room were in agreement. The procedure began with an incision along the lateral aspect of the femur and curving posteriorly on the superior aspect of the incision. Sharp and blunt dissection was carried down to the level of the tensor fascia. This was split in line with the incision. A Charnley retractor was placed. We then released the gluteus minimus and medius from their insertion site on the trochanter. We then performed a T capsulotomy to gain access to the hip joint. There was a fracture hematoma identified. We did also identify a displaced left femoral neck fracture. We then made our neck cut measuring 1 cm proximal to the lesser trochanter. The neck and fractured head were then removed. We placed a size 49 trial head into the acetabulum, which was found to have a good fit and suction. We then turned our attention to the femoral stem preparation. We utilized the box osteotome for our starting point, taking some of the lateral cortex. We then utilized the canal finder followed by the reamer and broach. We subsequently broached up to a size 5 stem. We then utilized a trial neck and head and performed a reduction maneuver. This was found to be stable. We took an intraoperative x-ray to confirm the appropriate size and position of our implants. We then dislocated the hip and removed all trial components. The incision and femoral canal was thoroughly irrigated with Pulsavac. We then placed our final stem and malleted this into position. We then placed our final bipolar head. We then performed a reduction maneuver. This was found to be stable throughout range of motion. We then reapproximated the capsule with #1 Vicryl in [id number] fashion. This was followed by repair of the gluteus tendons with a #5 Ti-Cron. This was oversewn with #1 Vicryl. We then placed topical TXA and injected a local pain anesthetic about the incision. We then reapproximated the tensor fascia with a #1 Vicryl and followed this with a running #1 Stratafix. Subcutaneous tissue was closed with 2-0 Vicryl in simple interrupted inverted fashion followed by 3-0 Stratafix running for skin. This was then covered with surgical glue and a sterile Mepilex dressing. She was extubated and transferred to the PACU in [address] [address] OPERATIVE REPORT Name: NEAL PEREZ Room: [address] IN .R.#: [id number] Admission: 12/20/19 Attend Phys: Mele Traore Discharge: Date of : 31 Report #: [id number] condition. All needle and sponge counts were correct x 2 at the end of the case. Dr. Parker was present and scrubbed throughout all critical aspects of the case. By: [id number] Parker DO /nt
[~2019-12-20 13:51] MED LIST changes: +ACETAMINOPHEN325 M1 PO; +CIPRO500 MG PO; +FLAGYL500 M1 PO; +PERCOCET PO
--- NOTE | 2019-12-20 13:52 | 2DMMODE ---
[place] [address] 2 D/M-MODE ECHOCARDIOGRAM Name: NEAL PEREZ Room: [facility]#: [id number] Admission: 12/20/19 Attend Phys: Annie Wellington MD Discharge: Date of : 32 Date of Service: 12/20/19 1352 Report #: [id number] THIS REPORT FOR: cc: Annie Wellington MD, Lin W. MD Blick, David R. MD [facility] ~ APPROVED REPORT Study performed: 12/20/2019 12:29:49 EXAM: Comprehensive 2D, Doppler, and color-flow Echocardiogram Patient Location: Out-Patient BSA: 1.77 HR: 55 bpm BP: 193/65 mmHg Other Information Study Quality: Adequate Indications Murmur 2D Dimensions IVSd: 11.00 (7-11mm) LVOT Diam: 20.55 (18-24mm) LVDd: 46.37 mm PWd: 10.36 (7-11mm) Ascending Ao: 28.92 (22-36mm) LVDs: 29.64 (25-40mm) Aortic Root: 23.63 mm Volumes Left Atrial Volume (Systole) LA ESV Index: 17.80 mL/m2 Aortic Valve AoV Peak Angel.: 1.85 m/s AO Peak Gr.: 13.76 mmHg LVOT Max P.04 mmHg AO Mean Gr.: 8.49 mmHg LVOT Mean P.01 mmHg LVOT Max V: 0.71 m/s AO V2 VTI: 55.57 cm LVOT Mean V: 0.46 m/s DARIN (VTI): 1.39 cm2 LVOT V1 VTI: 23.31 cm Mitral Valve E/A Ratio: 1.00 [place] [address] 2 D/M-MODE ECHOCARDIOGRAM Name: NEAL PEREZ Room: [facility]#: [id number] Admission: 12/20/19 Attend Phys: Annie Wellington MD Discharge: Date of : 31 Date of Service: 12/20/19 1352 Report #: [id number] MV Decel. Time: 163.68 ms MV E Max Angel.: 0.72 m/s MV PHT: 47.47 ms MVA (PHT): 4.63 cm2 TDI E/Lateral E': 9.00 E/Medial E': 8.00 Medial E' Angel.: 0.09 m/s Lateral E' Angel.: 0.08 m/s Pulmonary Valve PV Peak Angel.: 0.64 m/s PV Peak Gr.: 1.65 mmHg Left Ventricle The left ventricle is normal size. There is normal LV segmental wall motion. There is normal left ventricular wall thickness. Left ventricular systolic function is normal. The left ventricular ejection fraction is within the normal range. LVEF is 55-60%. The left ventricular diastolic function is normal. Right Ventricle The right ventricle is normal size. The right ventricular systolic function is normal. Atria The left atrium size is normal. The right atrium size is normal. Aortic Valve Aortic valve is calcified. No aortic regurgitation is present. Mild aortic stenosis. Mitral Valve Mild mitral annular calcification. Mild mitral regurgitation. No evidence of mitral valve stenosis. Tricuspid Valve The tricuspid valve is normal in structure. There is no tricuspid valve regurgitation noted. Pulmonic Valve The pulmonary valve is normal in structure. There is trace pulmonic valvular regurgitation. Great Vessels The aortic root is normal in size. IVC [place] [address] 2 D/M-MODE ECHOCARDIOGRAM Name: CHRIS,NEAL M Room: [facility]#: [id number] Admission: 12/20/19 Attend Phys: Annie Wellington MD Discharge: Date of : 31 Date of Service: 12/20/19 1352 Report #: [id number] collapses >50% with inspiration. Pericardium There is no pericardial effusion. <Conclusion> LVEF is 55-60%. Mild aortic stenosis. Mild mitral regurgitation. <ELECTRONICALLY SIGNED> By: Aaron Garcia MD, FACC 12/20/19 1352 135 135 Aaron Garcia MD, [facility] /INF
[2019-12-20 14:02] VITALS: BP 199/67
[2019-12-20] MEDS ORDERED: BENTYL 10 MG CA10 M1 PO (14:06)
[2019-12-20] MEDS ORDERED: CRANBERRY400 MG PO (14:07)
[2019-12-20 16:37] LABS: ABSOLUTE BASOPHILS 0.1 thou/uL (0.0-0.2); ABSOLUTE EOSINOPHILS 0.1 thou/uL (0.0-0.7); ABSOLUTE LYMPHOCYTES 1.9 thou/uL (0.8-5.3); ABSOLUTE MONOCYTES 0.4 thou/uL (0.0-1.2); ABSOLUTE NEUTROPHILS 4.5 thou/uL (1.6-8.1); BASOPHILS 0.9 %; EOSINOPHILS 1.7 %; HEMATOCRIT 41.4 % (37.0-47.0); HEMOGLOBIN 13.9 gm/dL (12.0-15.0); LYMPHOCYTES 27.4 %; MCH 30.3 pg (26.0-34.0); MCHC 33.6 g/dL (28.0-37.0); MCV 90.1 fL (80.0-100.0); MONOCYTES 5.9 %; MPV 9.1 fl. (7.2-11.1); NUCLEATED RBCS 0 /100WBC; PLATELET COUNT* 274 thou/uL (150-400); POLYS 64.1 %; RDW-CV 13.7 % (10.5-14.5); WBC 7.1 thou/uL (4.0-11.0)
[2019-12-20 16:55] LABS: ALBUMIN 4.2 g/dL (3.4-5.0); CALCIUM 9.7 mg/dL (8.5-10.1); POTASSIUM 4.2 mmol/L (3.5-5.1); TOTAL BILIRUBIN 1.1 mg/dL (<0.1-1.0); TOTAL PROTEIN 8.5 g/dL (6.4-8.2)
[2019-12-20 17:40] VITALS: BP 159/66
[2019-12-20 18:02] VITALS: BP 161/66
[2019-12-20 19:29] VITALS: BP 161/66
[2019-12-20 21:20] VITALS: BP 165/55
[2019-12-21 04:29] LABS: HEMATOCRIT 32.9 % (37.0-47.0); MCH 30.6 pg (26.0-34.0); MCV 89.9 fL (80.0-100.0); MPV 9.7 fl. (7.2-11.1); RBC 3.66 mil/uL (4.20-5.00); RDW-CV 13.9 % (10.5-14.5); WBC 13.2 thou/uL (4.0-11.0)
[2019-12-21 04:40] LABS: CALCIUM 8.3 mg/dL (8.5-10.1); CREATININE 1.1 mg/dL (0.6-1.3); POTASSIUM 4.4 mmol/L (3.5-5.1)
[2019-12-21 04:44] LABS: HEMOGLOBIN 11.2 gm/dL (12.0-15.0)
[2019-12-21 04:55] VITALS: BP 146/48
[2019-12-21 07:50] VITALS: BP 166/52
[2019-12-21 07:52] LABS: PROTIME 10.8 Seconds (9.20-11.50)
--- NOTE | 2019-12-21 07:59 | EKG ---
[place] [address] ELECTROCARDIOGRAM REPORT Name: NEAL PEREZ Room: [address] IN .R.#: [id number] Admission: 12/20/19 Attend Phys: Harish Saldana Discharge: Date of : 31 Date of Service: 12/20/19 1619 Report #: [id number] THIS REPORT FOR: //name// [facility] ED Test Date: 2019-12-20 Test Time: 16:19:54 Pat Name: NEAL PEREZ Department: Room: [facility] Gender: F Quality Measurement Specialist: : 1930 Requested By: Tejas Dawson Order Number: [id number] MD: Aaron Garcia Measurements Intervals [place] Rate: 71 P: 34 IN: 220 QRS: 11 QRSD: 98 T: 28 QT: 410 QTc: 446 Interpretive Statements Sinus rhythm Prolonged IN interval Probable left atrial enlargement Compared to ECG 06/29/2018 11:11:36 First degree AV block now present Left ventricular hypertrophy no longer present Electronically Signed On 12-21-2019 7:59:28 CDT by Aaron Garcia [email or web address] <ELECTRONICALLY SIGNED> By: Aaron Garcia MD, [facility] 12/21/19 0759 1619 1619 Aaron Garcia MD, [facility] /EPI
[2019-12-21 12:00] VITALS: BP 144/41
[2019-12-21 16:18] VITALS: BP 152/50
[2019-12-21 19:54] VITALS: BP 140/50
[2019-12-22 00:04] VITALS: BP 150/51
[2019-12-22] MEDS ORDERED: ELIQUIS2.5 MG PO (06:46)
[2019-12-22 09:15] VITALS: BP 118/40
[2019-12-22] MEDS ORDERED: ELIQUIS5 MG PO (09:33)
[2019-12-22] MEDS ORDERED: CYCLOBENZAPRINE10 MG PO (09:33)
[2019-12-22] MEDS ORDERED: LOPRESSOR50 PO (09:33)
[2019-12-22 11:30] VITALS: BP 139/39
[2019-12-22 16:00] VITALS: BP 125/44
[2019-12-22 16:15] VITALS: BP 132/48
[2019-12-22 20:20] VITALS: BP 157/45
[2019-12-22 22:10] LABS: HEMATOCRIT 31.1 % (37.0-47.0); HEMOGLOBIN 10.2 gm/dL (12.0-15.0); MCH 29.6 pg (26.0-34.0); MCHC 32.8 g/dL (28.0-37.0); MCV 90.2 fL (80.0-100.0); MPV 9.8 fl. (7.2-11.1); RBC 3.45 mil/uL (4.20-5.00); RDW-CV 13.8 % (10.5-14.5); WBC 14.3 thou/uL (4.0-11.0)
[2019-12-22 22:22] LABS: ALBUMIN 2.7 g/dL (3.4-5.0); CALCIUM 8.2 mg/dL (8.5-10.1); CREATININE 1.3 mg/dL (0.6-1.3); TOTAL BILIRUBIN 0.6 mg/dL (<0.1-1.0); TOTAL PROTEIN 6.1 g/dL (6.4-8.2)
[2019-12-23] VITALS: BP 163/54
[2019-12-23 06:55] LABS: CALCIUM 8.6 mg/dL (8.5-10.1); POTASSIUM 4.6 mmol/L (3.5-5.1)
[2019-12-23 09:00] VITALS: BP 137/52
[2019-12-23 09:44] VITALS: BP 137/52
== END 2019-12-23 11:10 | DRG 522 ==
LOC: M.TBA-ER 15:58 → M.ORTHSURG 15:58
PROVIDERS: Emergency Medicine Emergency Medical Services; Orthopaedic Surgery; ADMIT Internal Medicine; ATTEND Internal Medicine
PROC: 0SRS0JZ Replacement of Left Hip Joint, Femoral Surface with Synthetic Substitute, Open Approach (ICD-10-PCS; principal; 2019-12-21)
DX: S72.002A Fracture of unspecified part of neck of left femur, initial encounter for closed fracture (principal); I10 Essential (primary) hypertension; E03.9 Hypothyroidism, unspecified; W18.39XA Other fall on same level, initial encounter; Z20.828 Contact with and (suspected) exposure to other viral communicable diseases; Z90.49 Acquired absence of other specified parts of digestive tract; Z23 Encounter for immunization; Z90.711 Acquired absence of uterus with remaining cervical stump; Z86.711 Personal history of pulmonary embolism; Z79.82 Long term (current) use of aspirin; Z79.899 Other long term (current) drug therapy; Z88.1 Allergy status to other antibiotic agents; Z88.2 Allergy status to sulfonamides; Z88.8 Allergy status to other drugs, medicaments and biological substances; Z88.5 Allergy status to narcotic agent; Y93.89 Activity, other specified; Y92.89 Other specified places as the place of occurrence of the external cause; Y99.8 Other external cause status

== ENCOUNTER 2019-12-22 16:22 | Inpatient (IN) | payer MEDICARE ==
[~2019-12-22] VITALS: Ht 170.2 cm; Wt 70.5 kg
[~2019-12-22 16:22] MED LIST changes: +BENTYL 10 MG CA10 M1 PO; +CRANBERRY400 MG PO; +CYCLOBENZAPRINE10 MG PO; +ELIQUIS2.5 MG PO; +ELIQUIS5 MG PO; +LOPRESSOR50 PO
[2019-12-23 12:14] VITALS: BP 137/48
[2019-12-23 19:00] VITALS: BP 172/71
[2019-12-24 06:32] LABS: HEMATOCRIT 29.1 % (37.0-47.0); HEMOGLOBIN 9.7 gm/dL (12.0-15.0); MCH 29.7 pg (26.0-34.0); MCHC 33.4 g/dL (28.0-37.0); MPV 9.7 fl. (7.2-11.1); RBC 3.27 mil/uL (4.20-5.00); RDW-CV 13.7 % (10.5-14.5); WBC 12.6 thou/uL (4.0-11.0)
[2019-12-24 06:42] LABS: CALCIUM 8.5 mg/dL (8.5-10.1); CREATININE 0.9 mg/dL (0.6-1.3); POTASSIUM 3.9 mmol/L (3.5-5.1)
[2019-12-24 08:00] VITALS: BP 174/66
[2019-12-24 19:29] VITALS: BP 137/49
[2019-12-25 07:00] VITALS: BP 143/49
[2019-12-25 19:00] VITALS: BP 131/60
[2019-12-26 07:30] VITALS: BP 129/49
[2019-12-26 19:00] VITALS: BP 126/46
[2019-12-27 07:30] VITALS: BP 142/49
[2019-12-27 19:00] VITALS: BP 148/45
[2019-12-28 08:00] VITALS: BP 145/42
[2019-12-28 15:13] LABS: HEMOGLOBIN 10.6 gm/dL (12.0-15.0); MCH 29.8 pg (26.0-34.0); MCV 90.3 fL (80.0-100.0); MPV 9.8 fl. (7.2-11.1); NUCLEATED RBCS 0 /100WBC; PLATELET COUNT* 326 thou/uL (150-400); RBC 3.54 mil/uL (4.20-5.00); RDW-CV 13.9 % (10.5-14.5); WBC 10.5 thou/uL (4.0-11.0)
[2019-12-28 15:21] LABS: CREATININE 1.1 mg/dL (0.6-1.3); POTASSIUM 5.2 mmol/L (3.5-5.1)
[2019-12-28 15:49] LABS: ABSOLUTE EOSINOPHILS 0.2 thou/uL (0.0-0.7); ABSOLUTE LYMPHOCYTES 1.8 thou/uL (0.8-5.3); ABSOLUTE MONOCYTES 0.7 thou/uL (0.0-1.2); ABSOLUTE NEUTROPHILS 7.8 thou/uL (1.6-8.1)
[2019-12-28 15:50] LABS: LARGE PLATELETS RARE; PLATELET ESTIMATE ADEQUATE
[2019-12-28 20:00] VITALS: BP 143/47
[2019-12-29 05:07] LABS: HEMATOCRIT 29.1 % (37.0-47.0); HEMOGLOBIN 9.5 gm/dL (12.0-15.0); MCH 29.2 pg (26.0-34.0); MCHC 32.6 g/dL (28.0-37.0); MCV 89.5 fL (80.0-100.0); MPV 9.9 fl. (7.2-11.1); RBC 3.25 mil/uL (4.20-5.00); RDW-CV 13.8 % (10.5-14.5); WBC 10.7 thou/uL (4.0-11.0)
[2019-12-29 05:25] LABS: ALBUMIN 2.2 g/dL (3.4-5.0); CALCIUM 8.7 mg/dL (8.5-10.1); CREATININE 1.2 mg/dL (0.6-1.3); MAGNESIUM 1.7 mg/dL (1.8-2.4); POTASSIUM 5.1 mmol/L (3.5-5.1); TOTAL BILIRUBIN 0.4 mg/dL (<0.1-1.0); TOTAL PROTEIN 6.3 g/dL (6.4-8.2)
[2019-12-29 08:30] VITALS: BP 138/44
[2019-12-29 20:08] VITALS: BP 142/50
[2019-12-30 03:59] LABS: CREATININE 1.1 mg/dL (0.6-1.3); POTASSIUM 5.3 mmol/L (3.5-5.1)
[2019-12-30 08:42] VITALS: BP 137/53
[2019-12-30 19:30] VITALS: BP 135/40
[2019-12-31 04:55] LABS: HEMATOCRIT 28.4 % (37.0-47.0); HEMOGLOBIN 9.4 gm/dL (12.0-15.0); MCH 29.6 pg (26.0-34.0); MCHC 33.2 g/dL (28.0-37.0); MCV 89.1 fL (80.0-100.0); MPV 9.1 fl. (7.2-11.1); RBC 3.19 mil/uL (4.20-5.00); RDW-CV 13.7 % (10.5-14.5); WBC 10.3 thou/uL (4.0-11.0)
[2019-12-31 05:33] LABS: ALBUMIN 2.2 g/dL (3.4-5.0); CALCIUM 8.9 mg/dL (8.5-10.1); CREATININE 1.1 mg/dL (0.6-1.3); MAGNESIUM 1.9 mg/dL (1.8-2.4); POTASSIUM 5.2 mmol/L (3.5-5.1); TOTAL BILIRUBIN 0.3 mg/dL (<0.1-1.0); TOTAL PROTEIN 6.5 g/dL (6.4-8.2)
[2019-12-31 08:19] VITALS: BP 151/53
[2019-12-31 19:25] VITALS: BP 122/43
[2020-01-01 05:15] LABS: CREATININE 1.1 mg/dL (0.6-1.3); POTASSIUM 4.9 mmol/L (3.5-5.1)
[2020-01-01 05:20] LABS: CALCIUM 8.7 mg/dL (8.5-10.1)
[2020-01-01 07:30] VITALS: BP 140/46
[2020-01-01 19:55] VITALS: BP 127/42
[2020-01-02 07:30] VITALS: BP 156/53
[2020-01-02 19:45] VITALS: BP 138/84
[2020-01-03 08:00] VITALS: BP 122/47
[2020-01-03 20:09] VITALS: BP 155/71
[2020-01-04 08:00] VITALS: BP 166/55
[2020-01-04 19:54] VITALS: BP 124/68
[2020-01-05 08:05] VITALS: BP 101/53
[2020-01-05 20:04] VITALS: BP 146/43
[2020-01-06 09:03] VITALS: BP 146/96
[2020-01-06 19:00] VITALS: BP 124/54
[2020-01-07 08:04] VITALS: BP 152/60
[2020-01-07 19:32] VITALS: BP 125/68
[2020-01-08 05:18] LABS: HEMATOCRIT 29.3 % (37.0-47.0); HEMOGLOBIN 9.7 gm/dL (12.0-15.0); MCV 87.9 fL (80.0-100.0); MPV 8.9 fl. (7.2-11.1); RBC 3.34 mil/uL (4.20-5.00); RDW-CV 13.8 % (10.5-14.5); WBC 8.9 thou/uL (4.0-11.0)
[2020-01-08 05:34] LABS: CALCIUM 8.8 mg/dL (8.5-10.1); CREATININE 1.3 mg/dL (0.6-1.3); MAGNESIUM 1.9 mg/dL (1.8-2.4); POTASSIUM 4.7 mmol/L (3.5-5.1)
[2020-01-08 08:47] VITALS: BP 155/48
[2020-01-08 19:00] VITALS: BP 133/49
[2020-01-09 08:00] VITALS: BP 133/80
[2020-01-09 19:00] VITALS: BP 141/42
[2020-01-10 07:30] VITALS: BP 168/50
[2020-01-10 19:00] VITALS: BP 129/90
[2020-01-11 08:49] VITALS: BP 158/53
[2020-01-11 11:06] VITALS: BP 158/53
[2020-01-11] MEDS ORDERED: FLOMAX0.4 MG PO (11:15)
[2020-01-11] MEDS ORDERED: ROXICODONE5 M2 PO (11:19)
[2020-01-11] MEDS ORDERED: MIRALAX17 GM PO (11:20)
[2020-01-11] MEDS ORDERED: TRAMADOL 50 MG50 MG PO (11:21)
[2020-01-11 11:28] VITALS: BP 158/53
[2020-01-11 13:54] VITALS: BP 158/53
== END 2020-01-11 12:30 | disposition home health service (06) | DRG 536 ==
LOC: M.REH 16:22
PROVIDERS: Family Medicine; Internal Medicine; ADMIT Physical Medicine & Rehabilitation; ATTEND Physical Medicine & Rehabilitation
DX: S72.002A Fracture of unspecified part of neck of left femur, initial encounter for closed fracture (principal); I10 Essential (primary) hypertension; K59.00 Constipation, unspecified; R33.9 Retention of urine, unspecified; E03.9 Hypothyroidism, unspecified; D64.9 Anemia, unspecified; E83.42 Hypomagnesemia; E87.5 Hyperkalemia; W18.39XA Other fall on same level, initial encounter; Z88.2 Allergy status to sulfonamides; Z88.1 Allergy status to other antibiotic agents; Z88.6 Allergy status to analgesic agent; Z88.8 Allergy status to other drugs, medicaments and biological substances; Z90.711 Acquired absence of uterus with remaining cervical stump; Z90.49 Acquired absence of other specified parts of digestive tract; Y93.89 Activity, other specified; Y92.89 Other specified places as the place of occurrence of the external cause; Y99.8 Other external cause status; Z86.711 Personal history of pulmonary embolism; Z82.49 Family history of ischemic heart disease and other diseases of the circulatory system; Z79.82 Long term (current) use of aspirin; Z79.899 Other long term (current) drug therapy

== ENCOUNTER 2020-09-14 15:37 | Inpatient (IN) | payer MEDICARE ==
[~2020-09-14] VITALS: Ht 167.6 cm; Wt 68.3 kg
[~2020-09-14 15:37] MED LIST changes: +FLOMAX0.4 MG PO; +MIRALAX17 GM PO; +ROXICODONE5 M2 PO; +TRAMADOL 50 MG50 MG PO
[2020-09-14 15:53] VITALS: BP 166/54
[2020-09-14] MEDS ORDERED: OXYBUTYNIN 5 MG5 M2 PO (15:57)
[2020-09-14] MEDS ORDERED: TOPROL XL25 MG PO (15:57)
[2020-09-14] MEDS ORDERED: CEPHALEXIN250 MG PO (15:58)
[2020-09-14 17:21] LABS: ABSOLUTE BASOPHILS 0.1 thou/uL (0.0-0.2); ABSOLUTE EOSINOPHILS 0.2 thou/uL (0.0-0.7); ABSOLUTE MONOCYTES 0.8 thou/uL (0.0-1.2); ABSOLUTE NEUTROPHILS 3.2 thou/uL (1.6-8.1); BASOPHILS 0.8 %; EOSINOPHILS 3.1 %; HEMOGLOBIN 12.4 gm/dL (12.0-15.0); LYMPHOCYTES 41.2 %; MCH 29.5 pg (26.0-34.0); MCHC 33.4 g/dL (28.0-37.0); MCV 88.3 fL (80.0-100.0); MONOCYTES 10.7 %; MPV 9.3 fl. (7.2-11.1); NUCLEATED RBCS 0 /100WBC; PLATELET COUNT* 217 thou/uL (150-400); POLYS 44.2 %; RBC 4.19 mil/uL (4.20-5.00); RDW-CV 14.6 % (10.5-14.5); WBC 7.2 thou/uL (4.0-11.0)
[2020-09-14 17:28] LABS: CREATININE 1.4 mg/dL (0.6-1.3); POTASSIUM 4.2 mmol/L (3.5-5.1)
[2020-09-14 17:33] LABS: ALBUMIN 3.4 g/dL (3.4-5.0); TOTAL BILIRUBIN 0.5 mg/dL (<0.1-1.0); TOTAL PROTEIN 6.9 g/dL (6.4-8.2)
[2020-09-14 21:05] LABS: URINE BILIRUBIN NEGATIVE (Negative); URINE BLOOD NEGATIVE (Negative); URINE CLARITY CLEAR; URINE COLOR YELLOW; URINE GLUCOSE-RANDOM NEGATIVE (Negative); URINE KETONES NEGATIVE (Negative); URINE LEUKOCYTES-REFLEX TRACE (Negative); URINE NITRITE-REFLEX NEGATIVE (Negative); URINE PROTEIN NEGATIVE (Negative); URINE SPECIFIC GRAVITY 1.015 (1.005-1.030); URINE UROBILINOGEN 0.2 E.U./dl (0.2-1.0)
[2020-09-14 21:06] VITALS: BP 178/78
[2020-09-14 21:23] LABS: CASTS None Seen /LPF (None Seen); SQUAMOUS 0-3 Few /LPF (0-3)
[2020-09-14 21:24] LABS: BACTERIA-REFLEX None Seen /HPF (None Seen); CRYSTALS None Seen /LPF (None Seen); URINE RBC 0-2 Rare /HPF (0-2); URINE WBC-REFLEX 0-5 Rare /HPF (0-5)
[2020-09-14 22:00] VITALS: BP 237/79
[2020-09-15] VITALS (8 sets, daily range): BP systolic 138–201; BP diastolic 47–85
[2020-09-15 10:24] LABS: CHOLESTEROL 201 mg/dL (<200); HDL CHOLESTEROL 62 mg/dL (>40); LDL CHOLESTEROL 124 mg/dL (<100); SERUM ASSESSMENT Clear; TC:HDL 3.2 Ratio (Not establshd); TRIGLYCERIDE 77 mg/dL (<150); VLDL 15 mg/dL (<40)
[2020-09-16] VITALS (8 sets, daily range): BP systolic 112–214; BP diastolic 59–72
[2020-09-16] MEDS ORDERED: VITAMIN B-125000 MCG SUBLING (09:11)
[2020-09-16] MEDS ORDERED: LIPITOR 20 MG T20 M1 PO (09:13)
--- NOTE | 2020-09-16 11:40 | EKG ---
[place] [address] ELECTROCARDIOGRAM REPORT Name: NEAL PEREZ Room: [address] ADM IN M.R.#: [id number] Admission: 09/14/20 Attend Phys: Harish Saldana Discharge: Date of : 31 Date of Service: 09/14/20 1738 Report #: [id number] THIS REPORT FOR: //name// [facility] ED Test Date: 2020-09-14 Test Time: 17:38:17 Pat Name: NEAL PEREZ Department: Room: [facility] Gender: F Desk Top Publisher: BRANDON : 1930 Requested By: Alesia Clark Order Number: [id number] MD: Aaron Garcia Measurements Intervals [place] Rate: 64 P: 30 MA: 212 QRS: -2 QRSD: 86 T: 55 QT: 422 QTc: 436 Interpretive Statements Sinus rhythm Borderline prolonged MA interval LVH with secondary repolarization abnormality Compared to ECG 12/20/2019 16:19:54 Left ventricular hypertrophy now present Electronically Signed On 09-16-2020 11:39:50 CDT by Aaron Garcia [email or web address] <ELECTRONICALLY SIGNED> By: Aaron Garcia MD, [facility] 09/16/20 1139 1738 1738 Aaron Garcia MD, [facility] /EPI
[2020-09-17 22:06] LABS: ANA INTERPRETATION Positive (())
== END 2020-09-16 19:10 | disposition home or self-care (01) | DRG 69 ==
LOC: M.ERS 15:37 → M.TBA-ER 19:04 → M.2W 21:31
PROVIDERS: Physician Assistant; ADMIT Internal Medicine; ATTEND Internal Medicine
DX: G45.9 Transient cerebral ischemic attack, unspecified (principal); R44.3 Hallucinations, unspecified; R47.1 Dysarthria and anarthria; R35.0 Frequency of micturition; I10 Essential (primary) hypertension; F03.90 Unspecified dementia, unspecified severity, without behavioral disturbance, psychotic disturbance, mood disturbance, and anxiety; E03.9 Hypothyroidism, unspecified; Z20.822 Contact with and (suspected) exposure to COVID-19; Z90.711 Acquired absence of uterus with remaining cervical stump; Z86.711 Personal history of pulmonary embolism; Z90.49 Acquired absence of other specified parts of digestive tract; Z79.82 Long term (current) use of aspirin; Z79.899 Other long term (current) drug therapy; Z88.1 Allergy status to other antibiotic agents; Z88.2 Allergy status to sulfonamides; Z88.5 Allergy status to narcotic agent; Z88.8 Allergy status to other drugs, medicaments and biological substances

== ENCOUNTER 2020-09-28 22:00 | Inpatient (IN) | payer MEDICARE ==
[~2020-09-28] VITALS: Ht 165.1 cm; Wt 70.3 kg
[~2020-09-28 22:00] MED LIST changes: +CEPHALEXIN250 MG PO; +LIPITOR 20 MG T20 M1 PO; +OXYBUTYNIN 5 MG5 M2 PO; +TOPROL XL25 MG PO; +VITAMIN B-125000 MCG SUBLING
[2020-09-28 22:01] VITALS: BP 227/97
[2020-09-28 22:38] LABS: ABSOLUTE EOSINOPHILS 0.3 thou/uL (0.0-0.7); ABSOLUTE LYMPHOCYTES 2.8 thou/uL (0.8-5.3); ABSOLUTE MONOCYTES 0.7 thou/uL (0.0-1.2); ABSOLUTE NEUTROPHILS 3.4 thou/uL (1.6-8.1); BASOPHILS 0.5 %; EOSINOPHILS 4.8 %; HEMATOCRIT 36.2 % (37.0-47.0); HEMOGLOBIN 12.3 gm/dL (12.0-15.0); LYMPHOCYTES 38.1 %; MCH 30.4 pg (26.0-34.0); MCHC 34.1 g/dL (28.0-37.0); MCV 89.3 fL (80.0-100.0); MONOCYTES 9.5 %; MPV 9.3 fl. (7.2-11.1); NUCLEATED RBCS 0 /100WBC; PLATELET COUNT* 197 thou/uL (150-400); POLYS 47.1 %; RBC 4.05 mil/uL (4.20-5.00); RDW-CV 14.2 % (10.5-14.5); WBC 7.3 thou/uL (4.0-11.0)
[2020-09-28 22:49] LABS: CALCIUM 8.5 mg/dL (8.5-10.1); POTASSIUM 4.2 mmol/L (3.5-5.1)
[2020-09-28 22:50] LABS: URINE BILIRUBIN NEGATIVE (Negative); URINE BLOOD NEGATIVE (Negative); URINE CLARITY CLEAR; URINE COLOR YELLOW; URINE GLUCOSE-RANDOM NEGATIVE (Negative); URINE KETONES NEGATIVE (Negative); URINE LEUKOCYTES-REFLEX 1+ (Negative); URINE NITRITE-REFLEX NEGATIVE (Negative); URINE PROTEIN NEGATIVE (Negative); URINE UROBILINOGEN 0.2 E.U./dl (0.2-1.0)
[2020-09-28 22:59] LABS: ALBUMIN 3.4 g/dL (3.4-5.0); MAGNESIUM 1.8 mg/dL (1.8-2.4); TOTAL BILIRUBIN 0.6 mg/dL (<0.1-1.0)
[2020-09-28 23:39] LABS: BACTERIA-REFLEX None Seen /HPF (None Seen); CASTS None Seen /LPF (None Seen); CRYSTALS None Seen /LPF (None Seen); SQUAMOUS 0-3 Few /LPF (0-3); URINE RBC None Seen /HPF (0-2); URINE WBC-REFLEX 6-15 Few /HPF (0-5)
[2020-09-29 03:00] VITALS: BP 168/58
[2020-09-29 03:02] VITALS: BP 158/60
--- NOTE | 2020-09-29 05:46 | NUR ---
RECEIVED PT FROM ED AT APPROX 0258. PT IS AWAKE AND ORIENTED X4. PT IS NOT IN DISTRESS, NO DESATURATIONS NOTED ON ROOM AIR. PT IS TRACING SR ON THE VP CARE MANAGEMENT. PT DENIES CHEST PAIN/DISCOMFORT. ADMISSION ASSESSMENT DONE AND CHARTED. PT IS ADVISED TO HAVE NOTHING BY MOUTH FOR CARDIOLOGY. NO ACUTE CHANGES THIS SHIFT. CALL LIGHT WITHIN REACH. HOURLY ROUNDING DONE FOR PT SAFETY.
[2020-09-29 07:41] VITALS: BP 148/54; BP 162/57
[2020-09-29 10:24] LABS: CHOLESTEROL 143 mg/dL (<200); HDL CHOLESTEROL 69 mg/dL (>40); LDL CHOLESTEROL 68 mg/dL (<100); TC:HDL 2.1 Ratio (Not establshd); TRIGLYCERIDE 33 mg/dL (<150); VLDL 7 mg/dL (<40)
[2020-09-29 10:25] LABS: SERUM ASSESSMENT Clear
[2020-09-29 12:00] VITALS: BP 141/53
[2020-09-29 16:00] VITALS: BP 138/69
--- NOTE | 2020-09-29 18:51 | NUR ---
ASSUMED CARE OF PT AT 0730. PT A&0X4, COMPLAINED OF HEADACHE THIS AM-TREATED WITH PRN TYLENOL WITH RELIEF. 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 ON RA SAT UPPER 90'S. DENIES ANY SHORTNESS OF BREATH. PT AT BEDSIDE THIS AFTERNOON AND UPDATED ON CURRENT PLAN OF CARE. PT UP SBA TO BATHROOM. PT TO HAVE ECHO IN AM. HOME MEDICATIONS RECONCILED AND RESTARTED. AM ASSESSMENT CHARTED. MEDICATIONS PER MAY. PT REPOSITIONS SELF. HOURLY ROUNDING OBSERVED. BED IN LOW POSITION. CALL LIGHT WITHIN REACH. WILL CONTINUE PLAN OF CARE.
[2020-09-29 20:00] VITALS: BP 198/69
[2020-09-30] VITALS: BP 156/58
[2020-09-30 03:45] VITALS: BP 148/61
[2020-09-30 04:49] LABS: CALCIUM 8.2 mg/dL (8.5-10.1); CREATININE 1.4 mg/dL (0.6-1.3); POTASSIUM 4.1 mmol/L (3.5-5.1); TROPONIN-I LEVEL 0.49 ng/mL (<0.06)
[2020-09-30 04:52] LABS: ABSOLUTE BASOPHILS 0.1 thou/uL (0.0-0.2); ABSOLUTE EOSINOPHILS 0.4 thou/uL (0.0-0.7); ABSOLUTE LYMPHOCYTES 2.7 thou/uL (0.8-5.3); ABSOLUTE MONOCYTES 0.7 thou/uL (0.0-1.2); ABSOLUTE NEUTROPHILS 3.4 thou/uL (1.6-8.1); BASOPHILS 0.7 %; EOSINOPHILS 5.9 %; HEMOGLOBIN 11.6 gm/dL (12.0-15.0); LYMPHOCYTES 37.4 %; MCH 29.8 pg (26.0-34.0); MCHC 33.2 g/dL (28.0-37.0); MCV 89.6 fL (80.0-100.0); MONOCYTES 9.9 %; NUCLEATED RBCS 0 /100WBC; PLATELET COUNT* 194 thou/uL (150-400); POLYS 46.1 %; RBC 3.91 mil/uL (4.20-5.00); RDW-CV 14.7 % (10.5-14.5); WBC 7.3 thou/uL (4.0-11.0)
--- NOTE | 2020-09-30 05:58 | NUR ---
ASSUMED PT CARE AT APPROX 193O. PT IS AWAKE AND ORIENTED X4. PT IS TRACING SR WITH 1ST DEGREE AVB ON THE CONSULTING BUSINESS DEVELOPER. PT IS NOT IN DISTRESS, DENIES CHEST PAIN/DISCOMFORT. PT IS ABLE TO SLEEP MOST OF THE NIGHT AFTER SLEEPING MEDS. NO ACUTE CHANGES THIS SHIFT.
--- NOTE | 2020-09-30 09:55 | EKG ---
[place] [address] ELECTROCARDIOGRAM REPORT Name: NEAL PEREZ Room: [address] IN .R.#: [id number] Admission: 09/29/20 Attend Phys: Maite Mittal, Discharge: Date of : 31 Date of Service: 09/28/202202 Report #: [id number] THIS REPORT FOR: //name// [facility] ED Test Date: 2020-09-28 Test Time: 22:03:30 Pat Name: NEAL PEREZ Department: Room: [facility] Gender: F Superintendent Communications: FOREST : 1930 Requested By: Christal Contreras Order Number: [id number] MD: Aaron Garcia Measurements Intervals [place] Rate: 85 P: 64 [place]: 229 QRS: 13 QRSD: 94 T: 48 QT: 381 QTc: 453 Interpretive Statements Sinus rhythm Prolonged [place] interval Nonspecific repol abnormality, lateral leads Compared to ECG 09/14/2020 17:38:17 Left ventricular hypertrophy no longer present Electronically Signed On 09-30-2020 9:55:04 CDT by Aaron Garcia [email or web address] <ELECTRONICALLY SIGNED> By: Aaron Garcia MD, [facility] 09/30/2055 02 02 Aaron Garcia MD, [facility] /EPI
--- NOTE | 2020-09-30 09:56 | EKG ---
[place] [address] ELECTROCARDIOGRAM REPORT Name: NEAL PEREZ Room: [address] IN .R.#: [id number] Admission: 09/29/20 Attend Phys: Maite Mittal, Discharge: Date of : 31 Date of Service: 09/29/20 0128 Report #: [id number] THIS REPORT FOR: //name// [facility] ED Test Date: 2020-09-29 Test Time: 01:28:18 Pat Name: NEAL PEREZ Department: Room: [facility] Gender: F Laminating Machine Feeder: MR : 1930 Requested By: Christal Contreras Order Number: [id number] MD: Aaron Garcia Measurements Intervals [place] Rate: 92 P: 57 LA: 229 QRS: 2 QRSD: 88 T: 28 QT: 377 QTc: 467 Interpretive Statements Sinus rhythm Prolonged LA interval Probable left atrial enlargement Left ventricular hypertrophy Compared to ECG 09/28/2020 22:03:30 Left ventricular hypertrophy now present Electronically Signed On 09-30-2020 9:55:50 CDT by Aaron Garcia [email or web address] <ELECTRONICALLY SIGNED> By: Aaron Garcia MD, [facility] 09/30/20 0955 0128 0128 Aaron Garcia MD, [facility] /EPI
[2020-09-30] MEDS ORDERED: COREG6.25 MG PO (12:10)
--- NOTE | 2020-09-30 12:56 | 2DMMODE ---
[place] [address] 2 D/M-MODE ECHOCARDIOGRAM Name: CHRIS,NEAL M Room: [address] IN [facility]#: [id number] Admission: 09/29/20 Attend Phys: Maite Mittal, Discharge: Date of : 31 Date of Service: 09/30/20 1256 Report #: [id number] THIS REPORT FOR: cc: Annie Wellington MD, Lin W. MD Blick, David R. MD [facility] ~ APPROVED REPORT Study performed: 09/30/2020 11:44:33 EXAM: Comprehensive 2D, Doppler, and color-flow Echocardiogram Patient Location: In-Patient Room #: [facility] Status: routine BSA: 1.77 HR: 61 bpm BP: 148/61 mmHg Rhythm: NSR Other Information Study Quality: Good Indications Elevated Troponin Chest Pain Hypertension/HDD 2D Dimensions IVSd: 11.64 (7-11mm) LVOT Diam: 20.12 (18-24mm) LVDd: 50.19 mm PWd: 10.71 (7-11mm) Ascending Ao: 28.41 (22-36mm) LVDs: 31.55 (25-40mm) Aortic Root: 28.52 mm Volumes Left Atrial Volume (Systole) LA ESV Index: 32.80 mL/m2 Aortic Valve AoV Peak Angel.: 1.99 m/s AO Peak Gr.: 15.81 mmHg LVOT Max P.06 mmHg AO Mean Gr.: 9.47 mmHg LVOT Mean P.10 mmHg LVOT Max V: 0.72 m/s AO V2 VTI: 50.53 cm LVOT Mean V: 0.49 m/[place] [address] 2 D/M-MODE ECHOCARDIOGRAM Name: NEAL PEREZ Room: [address] IN .R.#: [id number] Admission: 09/29/20 Attend Phys: Maite Mittal, Discharge: Date of : 31 Date of Service: 09/30/20 1256 Report #: [id number] DARIN (VTI): 1.16 cm2 LVOT V1 VTI: 18.47 cm Mitral Valve E/A Ratio: 0.85 MV Decel. Time: 208.81 ms MV E Max Angel.: 0.70 m/s MV PHT: 60.55 ms MVA (PHT): 3.63 cm2 TDI E/Lateral E': 10.00 E/Medial E': 8.75 Medial E' Angel.: 0.08 m/s Lateral E' Angel.: 0.07 m/s Pulmonary Valve PV Peak Angel.: 0.73 m/s PV Peak Gr.: 2.15 mmHg Tricuspid Valve RAP Estimate: 5.00 mmHg TR Peak Gr.: 36.75 mmHg RVSP: 41.00 mmHg PA Pressure: 41.00 mmHg Left Ventricle The left ventricle is normal size. There is normal LV segmental wall motion. There is normal left ventricular wall thickness. Left ventricular systolic function is normal. The left ventricular ejection fraction is within the normal range. LVEF is 55-60%. Grade I - abnormal relaxation pattern. Right Ventricle The right ventricle is normal size. The right ventricular systolic function is normal. Atria Left atrium is mildly dilated. The right atrium size is normal. Aortic Valve Aortic valve is calcified. No aortic regurgitation is present. Mild aortic stenosis. Mitral Valve There is mitral annular calcification. Mild mitral regurgitation. No evidence of mitral valve stenosis[place] [address] 2 D/M-MODE ECHOCARDIOGRAM Name: NEAL PEREZ Room: [address]#: [id number] Admission: 09/29/20 Attend Phys: Maite Mittal, Discharge: Date of : 32 Date of Service: 09/30/20 1256 Report #: [id number] The tricuspid valve is normal in structure. Trace tricuspid regurgitation. estimated pa pressure 40 mm Hg Pulmonic Valve The pulmonary valve is normal in structure. Trace pulmonic regurgitation. Great Vessels The aortic root is normal in size. IVC is normal in size and collapses >50% with inspiration. Pericardium There is no pericardial effusion. <Conclusion> LVEF is 55-60%. Left atrium is mildly dilated. Mild aortic stenosis. Mild mitral regurgitation. Trace tricuspid regurgitation. estimated pa pressure 40 mm Hg <ELECTRONICALLY SIGNED> By: Aaron Garcia MD, [facility] 09/30/20 1256 1256 1256 Aaron Garcia MD, [facility] /INF
[2020-09-30 13:19] VITALS: BP 161/58
--- NOTE | 2020-09-30 14:01 | NUR ---
PT AO X4, SITTING IN CHAIR AT TIME OF ASSESSMENT, PT NSR IN 60s, DENIES PAIN, NO EDEMA OR COUGH. LUNGS CLEAR, PT UP AD ODALIS TO TOILET WITH NO COMPLAINTS THIS AM. PT IVS WERE REMOVED WITHOUT ISSUE, HEMOSTASIS ACHIEVED WITH PRESSURE DSG. AT BEDSIDE FOR COMFORT. DISCHARGE INSTRUCTIONS REVIEWED AND QUESTIONS ANSWERED. MEDS CALLED TO [facility] PER PT REQUEST. TELE MONITOR REMOVED AND PT TAKEN TO PRIVATE VEHICLE FOR DISCHARGE BY WHEELCHAIR WITH STAFF.
--- NOTE | 2020-09-30 14:58 | EKG ---
[place] [address] ELECTROCARDIOGRAM REPORT Name: NEAL PEREZ Room: [address] IN ..#: [id number] Admission: 09/29/20 Attend Phys: Maite Mittal, Discharge: 09/30/20 Date of : 32 Date of Service: 09/30/20 0932 Report #: [id number] THIS REPORT FOR: //name// [facility] Test Date: 2020-09-30 Test Time: 09:32:40 Pat Name: NEAL PEREZ Department: Room: [address] Gender: F Press Technician: ADRRYN : 1930 Requested By: Nina Recinos Order Number: [id number] Reading MD: Aaron Garcia Measurements Intervals [place] Rate: 66 P: 44 [place]: 195 QRS: 10 QRSD: 87 T: 43 QT: 433 QTc: 454 Interpretive Statements Sinus rhythm Probable left atrial enlargement Minimal ST depression, lateral leads Compared to ECG 09/29/2020 01:28:18 First degree AV block no longer present Left ventricular hypertrophy no longer present Electronically Signed On 09-30-2020 14:57:56 CDT by Aaron Garcia [email or web address] <ELECTRONICALLY SIGNED> By: Aaron Garcia MD, [facility] 09/30/20 1457 0932 Aaron Garcia MD, [facility] /EPI
--- NOTE | 2020-09-30 15:37 | NUR ---
CM ASSESSMENT: PT A&O, INDEPENDENT WITH ADL'S AND ACTIVE. PT RESIDES AT HOME WITH SPOUSE. PT OCCATIONALLY USES A CANE FOR MOBILITY, BUT ALSO OWNS A WHEELCHAIR AND WALKER. PT HAS PAST HX OF HH WITH [facility] AT HOME. PT HAS 0 HX OF SNF. PT HAS PAST HX OF INPT ACUTE REHAB UNIT. PLAN FOR THE PT TO D/C HOME TODAY WITH SELF-CARE. NO CM D/C PLANNING NEEDS ANTICIPATED. CM WILL REMAIN AVAILABLE TO ASSIST AND FOLLOW NEEDED.
== END 2020-09-30 14:04 | disposition home or self-care (01) | DRG 282 ==
LOC: M.ERS 22:00 → M.TBA-ER 09-29 02:40 → M.2W 09-29 02:40
PROVIDERS: Emergency Medicine; Internal Medicine; Registered Nurse; ADMIT Internal Medicine; ATTEND Internal Medicine
DX: I21.4 Non-ST elevation (NSTEMI) myocardial infarction (principal); I16.0 Hypertensive urgency; E05.90 Thyrotoxicosis, unspecified without thyrotoxic crisis or storm; I10 Essential (primary) hypertension; I35.0 Nonrheumatic aortic (valve) stenosis; E78.5 Hyperlipidemia, unspecified; Z20.822 Contact with and (suspected) exposure to COVID-19; Z90.711 Acquired absence of uterus with remaining cervical stump; Z90.49 Acquired absence of other specified parts of digestive tract; Z86.711 Personal history of pulmonary embolism; Z79.82 Long term (current) use of aspirin; Z79.899 Other long term (current) drug therapy; Z88.1 Allergy status to other antibiotic agents; Z88.5 Allergy status to narcotic agent; Z88.2 Allergy status to sulfonamides; Z88.8 Allergy status to other drugs, medicaments and biological substances

== ENCOUNTER → 2020-10-04 | Outpatient (CLI) | payer MEDICARE ==
[~2020-10-04] MED LIST changes: +COREG6.25 MG PO
== END ==
LOC: M.MRI 09-30 13:30
PROVIDERS: ATTEND Internal Medicine
DX: I67.82 Cerebral ischemia (principal); R41.0 Disorientation, unspecified; R42 Dizziness and giddiness; R51.9 Headache, unspecified; M54.2 Cervicalgia

== ENCOUNTER → 2020-11-01 | Outpatient (CLI) | payer MEDICARE ==
--- NOTE | 2020-11-01 17:05 | CARDNUC ---
[place] [address] CARDIAC NUCLEAR IMAGING REPORT Name: NEAL PEREZ Room: [facility]#: [id number] Admission: 11/01/20 Attend Phys: Wes Quintero, Discharge: Date of : 32 Date of Service: 11/01/20 1705 Report #: [id number] THIS REPORT FOR: cc: Annie Wellington MD, Lin W. MD [place]on, Michael J. MD [facility] ~ APPROVED REPORT Imaging Protocol: Rest Tc-99m/Stress Tc-99m 1 day Study performed: 11/01/2020 12:30:00 Indication: Abnormal EKG, Chest pain Patient Location: Out-Patient Stress Nurse: ROBERTA Ramos Tech:MIGUEL Beckman Ht: 5 ft 6 in Wt: 147 lbs BSA: 1.75 m2 BMI: 23.72 Medical History Medical History: HTN, Hyperlipidemia Medications: asa-325, atorvastatin, losartan, k-dur, amlodipine Allergies: carisoprodal, clonidine, hydrocodone, levaquin, sulfa Cardiac Risk Factors: Age, FHX of CAD, HTN, Hyperlipidemia Previous Cardiac Procedures: Myocardial infarction Exercise History: Sedentary Resting Data Rest SPECT myocardial perfusion imaging was performed in supine position 30 minutes following the intravenous injection of 10 mCi of Tc-99m Sestamibi. Time of rest injection: 1300 Date: 11/01/2020 The images were gated to evaluate regional wall motion and calculate left ventricular ejection fraction. Administration Route: IV Pharmacologic Stress Pharmacologic stress test was performed by injecting Regadenoson 0.4 mg IV push over 10-15 seconds immediately followed by the intravenous injection of 34.8 mCi of Tc-99m Sestamibi. Time of stress injection: 1415 Date: 11/01/2020 Administration Route: [place] [address] CARDIAC NUCLEAR IMAGING REPORT Name: NEAL PEREZ Room: [facility]#: [id number] Admission: 11/01/20 Attend Phys: Wes Quintero, Discharge: Date of : 32 Date of Service: 11/01/20 1705 Report #: [id number] Gated Stress SPECT was performed 40 minutes after stress injection. The images were gated to evaluate regional wall motion and calculate left ventricular ejection fraction. Prone imaging was performed. Stress Test Details Stress Test: Pharmacologic stress testing performed using 0.4 mg of regadenoson per 5 mL given IV over 10 seconds. HR Max Heart Rate (APMHR): 131 bpm Resting HR: 94 bpm Target HR (85% APMHR): 111 bpm Max HR Achieved: 101 bpm % of APMHR: 77 Recovery HR: 103 bpm HR response to stress: Normal HR response to stress BP Resting BP: 196/94 mmHg Max BP: 172/72 mmHg Recovery BP: 168/67 mmHg ECG Resting ECG: Sinus Rhythm Stress ECG: Sinus Rhythm ST Change: None Arrhythmia: None Recovery ECG: Sinus Rhythm Recovery ST Change: None Recovery Arrhythmia: None Clinical Reason for Termination: Completed protocol The patient tolerated Lexiscan infusion without significant cardiac symptoms. Nurse Comments pt too frail to walk on treadmill Stress ECG Conclusion The baseline twelve-lead EKG shows sinus rhythm without significant ST segment or T wave abnormality. EKGs obtained during and post Lexiscan shows sinus rhythm with no significant ST segment or T wave changes when compared to baseline. Study Quality Study: [place] [address] CARDIAC NUCLEAR IMAGING REPORT Name: CHRISNEAL GOODRICH Room: [facility]#: [id number] Admission: 11/01/20 Attend Phys: Wes Quintero, Discharge: Date of : 32 Date of Service: 11/01/20 1705 Report #: [id number] Artifact: Mild Breast artifact Study Data At rest, the left ventricular ejection fraction was 62%.. Post stress, the left ventricular ejection was 57%.. TID = 0.98. Perfusion There is a small in size mild to moderate intensity reversible defect of the anteroapical wall. No other significant fixed or reversible defects are identified. Wall Motion Normal left ventricular wall motion. Nuclear Conclusion ECG Findings: negative for ischemia Clinical Findings: negative for ischemia Nuclear Findings: positive for ischemia Exercise Capacity: not assessed Left Ventricular Function: normal Risk Study: moderate Perfusion images suggest a focal region of anteroapical ischemia. Global LV systolic function is preserved. This is a moderate risk study. <Conclusion> The baseline twelve-lead EKG shows sinus rhythm without significant ST segment or T wave abnormality. EKGs obtained during and post Lexiscan shows sinus rhythm with no significant ST segment or T wave changes when compared to baseline. <ELECTRONICALLY SIGNED> By: Wes Quintero MD, FACC 11/01/20 1705 04 04 Wes Quintero MD, FACC /INF
== END ==
LOC: M.NUC 10-15 08:42
PROVIDERS: ATTEND Internal Medicine Cardiovascular Disease
DX: R94.31 Abnormal electrocardiogram [ECG] [EKG] (principal); I10 Essential (primary) hypertension; E78.5 Hyperlipidemia, unspecified

== ENCOUNTER 2020-11-12 08:34 | Observation (INO) | payer MEDICARE ==
[2020-11-12] VITALS (13 sets, daily range): BP systolic 143–184; BP diastolic 52–92
[~2020-11-12] VITALS: Ht 170.2 cm; Wt 66.7 kg
--- NOTE | ~2020-11-12 | H ---
[address] [address] HISTORY AND PHYSICAL Name: CHRISNEAL KP Room: [address] Moisés Owen#: [id number] Admission: 11/12/20 Attend Phys: Wes Quintero MD Discharge: 11/13/20 Date of : 32 Report #: [id number] THIS REPORT FOR: cc: Annie Wellington MD, Lin W. MD [facility],Medical Records Staff ~ Please refer to the History and Physical performed in the physician's office. By: 02Medical Records Staff [facility] /EVA
[~2020-11-12 08:34] MED LIST changes: +NORVASC5 MG PO
[2020-11-12 09:13] LABS: HEMOGLOBIN 12.3 gm/dL (12.0-15.0); MCH 29.7 pg (26.0-34.0); MCHC 33.4 g/dL (28.0-37.0); RBC 4.15 mil/uL (4.20-5.00); RDW-CV 13.8 % (10.5-14.5); WBC 11.9 thou/uL (4.0-11.0)
[2020-11-12 09:22] LABS: ANION GAP 11 mmol/L (7-16); BUN 24 mg/dL (7-18); CALCIUM 8.9 mg/dL (8.5-10.1); CHLORIDE 105 mmol/L (98-107); CO2 26 mmol/L (21-32); CREATININE 1.3 mg/dL (0.6-1.3); GLUCOSE 104 mg/dL (70-99); POTASSIUM 4.8 mmol/L (3.5-5.1); SODIUM 142 mmol/L (136-145)
[2020-11-12 09:26] LABS: ALBUMIN 3.9 g/dL (3.4-5.0); ALKALINE PHOSPHATASE 144 U/L (46-116); CHOLESTEROL 139 mg/dL (<200); HDL CHOLESTEROL 70 mg/dL (>40); LDL CHOLESTEROL 57 mg/dL (<100); SGOT 31 U/L (15-37); SGPT 29 U/L (30-65); TOTAL BILIRUBIN 0.9 mg/dL (<0.1-1.0); TOTAL PROTEIN 7.6 g/dL (6.4-8.2); TRIGLYCERIDE 63 mg/dL (<150); VLDL 13 mg/dL (<40)
[2020-11-12 09:28] LABS: SERUM ASSESSMENT Clear
[2020-11-12 09:58] LABS: APTT 25.2 Seconds (25.0-31.3); INR 0.9; PROTIME 10.1 Seconds (9.20-11.50)
[2020-11-12 10:44] LABS: URINE BILIRUBIN NEGATIVE (Negative); URINE BLOOD 1+ (Negative); URINE CLARITY CLEAR; URINE COLOR YELLOW; URINE GLUCOSE-RANDOM NEGATIVE (Negative); URINE KETONES NEGATIVE (Negative); URINE LEUKOCYTES 3+ (Negative); URINE NITRITE POSITIVE (Negative); URINE PROTEIN TRACE (Negative); URINE UROBILINOGEN 0.2 E.U./dl (0.2-1.0)
--- NOTE | 2020-11-12 10:47 | EKG ---
[place] [address] ELECTROCARDIOGRAM REPORT Name: CHRISNEAL NAVARRO Room: [facility]#: [id number] Admission: 11/12/20 Attend Phys: Wes Quintero, Discharge: Date of : 32 Date of Service: 11/12/20912 Report #: [id number] THIS REPORT FOR: //name// [facility] Test Date: 2020-11-12 Test Time: 09:13:05 Pat Name: NEAL PEREZ Department: Room: Gender: F Messenger Floorperson: : 1930 Requested By: Wes Quintero Order Number: [id number] Reading MD: Wes Quintero Measurements Intervals [place] Rate: 84 P: 59 MA: 227 QRS: 16 QRSD: 91 T: 40 QT: 370 QTc: 438 Interpretive Statements Sinus rhythm Prolonged MA interval Compared to ECG 09/30/2020 09:32:40 First degree AV block now present ST (T wave) deviation no longer present Electronically Signed On 11-12-2020 10:47:28 CDT by Wes Quintero [email or web address] <ELECTRONICALLY SIGNED> By: Wes Quintero MD, FACC 11/12/20 1047 2 2 Wes Quintero MD, [facility] /EPI
[2020-11-12 11:00] LABS: BACTERIA >30 Many /HPF (None Seen); CASTS None Seen /LPF (None Seen); CRYSTALS None Seen /LPF (None Seen); MUCUS None Seen strn/LPF (None Seen); SQUAMOUS 0-3 Few /LPF (0-3); URINE RBC 3-10 Few /HPF (0-2); URINE WBC >25 Many /HPF (0-5)
--- NOTE | 2020-11-12 14:26 | EKG ---
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: : 1930 Requested By: Aaron Garcia Order Number: [id number] Reading MD: Aaron Garcia Measurements Intervals [place] Rate: 86 P: 52 TX: 216 QRS: 17 QRSD: 93 T: 42 QT: 372 QTc: 445 Interpretive Statements Sinus rhythm Multiple ventricular premature complexes Borderline prolonged [place] interval Compared to ECG 11/12/2020 09:13:05 Ventricular premature complex(es) now present Electronically Signed On 11-12-2020 14:26:34 CDT by Aaron Garcia [email or web address] <ELECTRONICALLY SIGNED> By: Aaron Garcia MD, [facility] 11/12/20 1426 1345 1345 Aaron Garcia MD, [facility] /EPI
--- NOTE | 2020-11-12 17:15 | NUR ---
POST HEART CATH TO 201 PATIENT TO VIA BED PATIENT ORIEMTED TO AND CALL LIGHT DENIES PAIN
[2020-11-13] VITALS: BP 164/66
[2020-11-13 04:00] VITALS: BP 120/51
[2020-11-13 04:53] LABS: HEMATOCRIT 33.2 % (37.0-47.0); MCH 29.4 pg (26.0-34.0); MCHC 33.1 g/dL (28.0-37.0); MCV 88.9 fL (80.0-100.0); MPV 10.5 fl. (7.2-11.1); RBC 3.74 mil/uL (4.20-5.00); RDW-CV 13.7 % (10.5-14.5); WBC 11.4 thou/uL (4.0-11.0)
[2020-11-13 05:06] LABS: CALCIUM 8.4 mg/dL (8.5-10.1); CREATININE 1.3 mg/dL (0.6-1.3); POTASSIUM 4.5 mmol/L (3.5-5.1)
--- NOTE | 2020-11-13 05:43 | NUR ---
PATIENT SLEPT MOST OF THE NIGHT. NEW IV WAS STARTED CHARTED. R GROIN CATH SITE REMAINS INTACT. IV FLUIDS CONTINUE TO INFUSE ORDERED. PATIENT COMPLAINING OF BURNING AND BACK PAIN FROM THE UTI. TYLENOL WAS GIVEN WITH SOME RELIEF. PATIENT SHOULD DC HOME TODAY. WILL CONTINUE TO MONITOR.
[2020-11-13] MEDS ORDERED: LIPITOR 20 MG T20 M1 PO (07:54)
[2020-11-13 08:05] VITALS: BP 161/52
[2020-11-13] MEDS ORDERED: CIPROFLOXACIN500 M1 PO (08:58)
[2020-11-13] MEDS ORDERED: CLOPIDOGREL75 MG PO (08:58)
--- NOTE | 2020-11-13 09:50 | EKG ---
[place] [address] ELECTROCARDIOGRAM REPORT Name: CHRISNEAL KP Room: [address] M.R.#: [id number] Admission: 11/12/20 Attend Phys: Wes Quintero, Discharge: Date of : 32 Date of Service: 11/13/20 0658 Report #: [id number] THIS REPORT FOR: //name// [facility] Test Date: 2020-11-13 Test Time: 06:58:42 Pat Name: NEAL PEREZ Department: Room: [facility] Gender: F Rn Obgyn: PP : 1930 Requested By: Aaron Garcia Order Number: [id number] Reading MD: Aaron Garcia Measurements Intervals [place] Rate: 72 P: 42 MT: 215 QRS: 13 QRSD: 89 T: 59 QT: 398 QTc: 436 Interpretive Statements Sinus rhythm Borderline prolonged MT interval Low voltage, precordial leads Compared to ECG 11/12/2020 13:45:58 Low QRS voltage now present Ventricular premature complex(es) no longer present Electronically Signed On 11-13-2020 9:50:32 CDT by Aaron Garcia [email or web address] <ELECTRONICALLY SIGNED> By: Aaron Garcia MD, [facility] 11/13/20 0950 0658 0658 Aaron Garcia MD, [facility] /EPI
[2020-11-13 11:48] VITALS: BP 161/52
--- NOTE | 2020-11-13 12:40 | NUR ---
Reviewed discharge teaching with pt; verbalized understanding. [facility] prescription [facility] per pt request; however, [facility] out of c[facility]fl[facility], so paper script given to patient (both scripts were sent electronically to [facility], which is where they fill other medications, but she and did not want this changed in [facility]). Pt discharged from unit per WC.
--- NOTE | 2020-11-13 13:56 | CARD ---
[address] [address] CARDIAC CATH REPORT Name: NEAL PEREZ Room: [address] Moisés Owen#: [id number] Admission: 11/12/20 Attend Phys: Wes Quintero MD Discharge: 11/13/20 Date of : 32 Report #: [id number] THIS REPORT FOR: cc: Annie Wellington MD, Lin W. MD Blick, David R. MD [facility] ~ APPROVED REPORT Study performed: 11/12/2020 10:41:48 Patient Details Patient Status: Out-Patient Room #: The patient is a 89 year-old female Event Personnel Joseph Flores Reeves, Adam RTR Monitor, Zenaida Vazquez RN RN, Wes Quintero Tong Hooker, Aaron Garcia Clothing Worker Procedures Performed Left Heart Cath w/or w/o Coronaries [id number] [facility] Place w/wo Plasty Single LAD [id number] Hemostasis w/ Angioseal Indication Positive stress test, Chest pain Risk Factors Hypercholesterolemia, Hypertension Admission/Lab Medications/Medications given during procedure Glycoprotein IllbIlla Inhibitors, Heparin Unfract., Lidocaine Subcut 20 ml, Fentanyl IV 25 mcg, Midazolam (Versed) IV 1 mg, Heparin IV 7000 units, Aggrastat Unknown 6.7 ml, Plavix PO 600 mg Procedure Narrative The patient was brought electively to the Cardiac Catheterization Laboratory and was prepped and draped in a sterile manner. The right femoral was infiltrated with 2% Lidocaine subcutaneous anesthesia. IV conscious sedation was used throughout procedure with appropriate monitoring and was performed in the presence of a registered nurse who was an independent trained observer other than the physician performing the procedure. A Idabel 6 FR sheath was inserted into the right femoral artery. Coronary angiography [place] [address] CARDIAC CATH REPORT Name: NEAL PEREZ [address] [id number] Admission: 11/12/20 Attend Phys: Wes Quintero MD Discharge: 11/13/20 Date of : 32 Report #: [id number] coronary diagnostic catheters. The right coronary system was accessed and visualized with a Diagnostic JR4 6Fr catheter. The left coronary system was accessed and visualized with a Diagnostic JL4 6Fr catheter. The left ventricle was accessed and visualized with a Diagnostic JR4 6Fr catheter. Left ventricular/Aortic Valve gradient assessed via catheter pullback. Closure device was deployed with a 6 Fr Angioseal. The patient tolerated the procedure well and there were no complications associated with the procedure. There was no hematoma. Intraoperative Conscious Sedation Sedation start time: 1148 Case end Time: 1224 Fentanyl 25 mcg Versed 1 mg Fluoro Time: 5.1 minutes Dose: DAP 55276 cGycm2 776.23 mGy Contrast Type and Amount: Visipaque 160 ml Diagnostic Cath Left Main The left main coronary artery is short. There is mild calcification and 30% narrowing distally. The left main bifurcates into a left anterior descending and circumflex coronary artery. LAD The left anterior descending coronary artery is calcified proximally. There is an 80% narrowing in the midportion of the vessel. Distally there is a 40% narrowing. Diagonal 1 A moderate-sized branched first diagonal branch has moderate 50% plaquing in its proximal and midportion. Diagonal 2 A small second diagonal branch is moderately diffusely plaqued. Circumflex The circumflex coronary artery is mildly plaque in its proximal and midportion without hemodynamically significant stenoses. OM1 A large high rising first obtuse marginal branch is free of significant disease. OM2 A small distal second obtuse marginal branch is free of significant disease. Right Coronary The right coronary artery is a large and dominant vessel that is moderately plaque in its proximal and midportion with up to 50% narrowing in the proximal and distal portion. Distally the artery bifurcates into a large branch posterior lateral branch and PDA. R PDA The PDA appears normal. RPLV The posterior [place] [address] CARDIAC CATH REPORT Name: NEAL PEREZ Room: [address] M.RAnat#: [id number] Admission: 11/12/20 Attend Phys: Wes Quintero MD Discharge: 11/13/20 Date of : 32 Report #: [id number] Left Ventriculography Left Ventriculography was not performed. Hemodynamics The aortic pressure is 178/63 mmHg with a mean of 111 mmHg. The left ventricular pressure is 181/5 mmHg with a mean of mmHg. The left ventricular end diastolic pressure is 18 mmHg. PCI Technique Lesion Anticoagulation was achieved with Heparin. bolus of iv aggrastat given Percutaneous coronary intervention was performed on the mid left anterior descending artery segment. The lesion stenosis prior to intervention was 80% with SUBHASH 3 flow. A 6F XB LAD 4.0 Guide Catheter was used to engage the Left ostium. A IG: BMW 190cm Interventional Guidewire was used to cross the lesion. BALLOON DILATION A Balloon catheter Tom RX Stent 2.5X18mm was inserted and inflated up to 8.00atm for 12seconds. Repeat angiography revealed the following post-dilatation results: 30% stenosis. Additional Inflation: 8.00atm for 10seconds. Additional Inflation: 8.00atm for 10seconds. STENT DEPLOYMENT A drug-eluting stent Tom RX Stent 2.5X18mm was inserted and inflated up to 9.00atm for 12seconds. Repeat angiography revealed the following post-stent deployment results: 0% stenosis. Additional Inflation: 9.00atm for 7seconds. Additional Inflation: 10.00atm for 10seconds. Final angiography reveals 0 % stenosis with SUBHASH 3 flow. Conclusion 1. 80% narrowing in the mid left inner descending coronary artery as described above. 2. Moderate nonocclusive disease noted otherwise. 3. Elevated left ventricular end-diastolic pressure consistent with acute on chronic diastolic heart failure. 4. Left ventriculogram not obtained. 5. successful placement of a drug eluting stent in the mid LAD Recommendations 1. Percutaneous coronary intervention to the mid left anterior [facility] [address] [facility] [place] [address] CARDIAC CATH REPORT Name: NEAL PEREZ: [facility] Moisés Owen#: [id number] Admission: 11/12/20 Attend Phys: Wes Quintero MD Discharge: 11/13/20 Date of : 32 Report #: [id number] descending coronary artery. 2. Continue aggressive risk factor modification and medical management. Medications Administered Clopidogrel Diagnostic Cath Approved by: Wes Quintero MD Date/Time: <ELECTRONICALLY SIGNED> By: Aaron Garcia MD, [facility] 11/13/20 1355 1355 1355Aaron Garcia MD, FAC /INF
--- NOTE | 2020-11-14 17:11 | D ---
[address] [address] DISCHARGE SUMMARY Name: CHRISNEAL GOODRICH Room: [address] Moisés Owen#: [id number] Admission: 11/12/20 Attend Phys: Wes Quintero MD Discharge: 11/13/20 Date of : 32 Report #: [id number] THIS REPORT FOR: cc: Annie Wellington MD, Lin W. MD [place], Michael J. MD [facility] ~ cc: Annie Wellington MD DATE OF DISCHARGE: 11/13/2020 DISCHARGE DIAGNOSES: 1. Unstable angina. 2. Coronary artery disease. 3. Hyperlipidemia. 4. Essential hypertension. 5. Urinary tract infection. 6. Acute on chronic diastolic heart failure due to underlying coronary artery disease. PROCEDURES DURING HOSPITALIZATION: 1. Coronary angiography. 2. Left heart catheterization. 3. Percutaneous coronary intervention with drug-eluting stent placement to the mid LAD. HOSPITAL COURSE: The patient was brought to the hospital for left heart catheterization and coronary angiography after having a stress test which showed mid anterior to apical ischemia. Angiography revealed 80% mid LAD narrowing. The patient had otherwise moderate nonocclusive plaquing noted. The stress testing or left ventricular systolic function was normal. Risk factors include hypertension and dyslipidemia for which she is on medication. The patient underwent percutaneous coronary intervention with drug-eluting stent placed to the mid left anterior descending coronary artery with excellent result. The patient tolerated the procedure well and without complication. The patient's recovery was in the usual fashion. The patient is being discharged uneventfully. DISCHARGE MEDICATIONS: Will include Plavix 75 mg daily, aspirin 81 mg daily, atorvastatin 20 mg at bedtime, cranberry supplement daily, losartan 100 mg daily, oxybutynin 5 mg daily, potassium chloride 10 mEq daily, Flomax 0.4 mg daily, amlodipine 5 mg daily, ciprofloxacin 500 mg b.i.d. [place] [address] [place] [address] DISCHARGE SUMMARY Name: NEAL PEREZ Room: [address]#: [id number] Admission: 11/12/20 Attend Phys: Wes Quintero MD Discharge: 11/13/20 Date of : 32 Report #: [id number] DISPOSITION: The patient to follow up with cardiology in two to four weeks. Appointment is already scheduled. <ELECTRONICALLY SIGNED> By: Wes Quintero MD, FACC 11/14/20 1711 0813 0822[facility] Centerth[facility] Quintero MD, [facility] /nt
== END 2020-11-13 12:45 | disposition home or self-care (01) ==
LOC: M.CL 08:34 → M.TBA-CV 12:02 → M.2W 12:02
PROVIDERS: Internal Medicine Cardiovascular Disease; ADMIT Internal Medicine Cardiovascular Disease; ATTEND Internal Medicine Cardiovascular Disease
DX: I25.110 Atherosclerotic heart disease of native coronary artery with unstable angina pectoris (principal); Z20.822 Contact with and (suspected) exposure to COVID-19; E78.5 Hyperlipidemia, unspecified; I10 Essential (primary) hypertension; N39.0 Urinary tract infection, site not specified; I50.33 Acute on chronic diastolic (congestive) heart failure; Z79.02 Long term (current) use of antithrombotics/antiplatelets; Z79.899 Other long term (current) drug therapy

== ENCOUNTER → 2021-04-03 | Outpatient (CLI) | payer MEDICARE ==
[~2021-04-03] MED LIST changes: +CIPROFLOXACIN500 M1 PO; +CLOPIDOGREL75 MG PO
[2021-04-03 12:34] LABS: CHOLESTEROL 145 mg/dL (<200); HDL CHOLESTEROL 78 mg/dL (>40); LDL CHOLESTEROL 58 mg/dL (<100); TC:HDL 1.9 Ratio (Not establshd); TRIGLYCERIDE 46 mg/dL (<150); VLDL 9 mg/dL (<40)
[2021-04-03 12:35] LABS: SERUM ASSESSMENT Clear
== END ==
LOC: M.LAB 11:43
PROVIDERS: ATTEND Internal Medicine Cardiovascular Disease
DX: E78.2 Mixed hyperlipidemia (principal)